=== PATIENT | male | born 1965 | race Caucasian/White ===

== ENCOUNTER 2021-11-28 13:57 | Outpatient (CLI) | payer OTHER, SELFPAY ==
--- NOTE | 2021-11-28 14:04 | RAD_ITS ---
STUDY: X-RAY - LUMBOSACRAL SPINE REASON FOR EXAM: Male, 56 years old. BACK PAIN TECHNIQUE: 6 view(s) of the lumbosacral spine were obtained including flexion and extension and oblique views.. COMPARISON: None FINDINGS: Normal lumbar lordosis. There is no substantial scoliosis. Grade 2 anterolisthesis of L5 on S1 with spondylolysis of the pars interarticularis of the L5 vertebrae. This is worse on the extension views. Anterior spondylosis at the T12-L1 as well as at the L4-L5 and L5-S1 levels. Disc space narrowing at the L5-S1 level. Normal bilateral sacral ala, sacroiliac joints, and visualized sacrum. Normal visualized soft tissue structures. RAD/L/S Spine w Bend Min 6 Vw IMPRESSION: Degenerative changes of the spine, as detailed above. Grade 2 anterolisthesis of L5 on S1 with spondylolysis of the pars interarticularis of the L5 vertebrae. This is more pronounced on the extension views. Electronically Signed: Orlando Sandoval MD at 8:48 EST ,
[2021-11-28 18:53] LABS: Microalbumin,Random Urine 8.9 mg/L (NO RANGE EST.)
[2021-11-28 19:00] LABS: AST(SGOT) 73 U/L (15-37); Alanine Aminotransfer ALT/SGPT 128 U/L (16-61); Albumin, Serum 4.1 g/dL (3.2-5.0); Alkaline Phosphatase 70 U/L (45-117); Anion Gap 11 (5-15); BUN 11 mg/dL (7-18); BUN/Creat Ratio 12.5 RATIO (10-20); Bilirubin, Direct 0.14 mg/dL (0.00-0.30); Calcium,Total 9.2 mg/dL (8.5-10.1); Chloride 104 mmol/L (98-107); Creatinine, Serum 0.88 mg/dL (0.70-1.30); EST Glomerular Filtration Rate 96 mL/min (>60); Est Glom Filt Rate - Afr Amer 116 mL/min (>60); Globulin 3.8 g/dL (2.2-4.2); Glucose 82 mg/dL (74-106); PSA,Total - Annual Screen 0.44 ng/mL (0.00-4.00); Potassium 4.2 mmol/L (3.5-5.1); Protein, Total 7.9 g/dL (6.4-8.2); Sodium Level 137 mmol/L (136-145)
== END 2021-11-28 23:59 | disposition home or self-care (01) ==
LOC: MTLAB 14:00
PROVIDERS: PCP Family Medicine; Referring Provider Family Medicine; Visit Provider Family Medicine
DX: I10 Essential (primary) hypertension (principal); Z12.5 Encounter for screening for malignant neoplasm of prostate; R73.01 Impaired fasting glucose; M54.9 Dorsalgia, unspecified
CPT/HCPCS: 36415; 72114; 80048; 80076; 82043; 84153; G0103

== ENCOUNTER 2021-12-12 09:00 | Outpatient (RCR) | payer OTHER, SELFPAY ==
--- NOTE | 2021-12-02 16:27 | HP.PTEVAL_ITS ---
Patient's Visit Information MEGAN MOSS is a 56 year old M referred to Physical Therapy by Dr. Georges Lindsay MD with a diagnosis of BACK PAIN. Date of Evaluation: 12/02/21 Physical Therapist: Oz Morgan PT, Cert MDT, OCS - Visit Plan Frequency: 2x /Week Duration: 4 Weeks Plan: PT INTERVENTIONS DLS ABD/BACK ,POSTURAL ,LE FLEXABILITY AND POSTURE/BODY MECHANICS - Subjective This 56 y/o male presents to physical therapy with back pain. Patient has lumbar pain for ~ 1 year . Symptoms have been intermittent. Pain located in middle of lumbar spine. Patient seen DR did x-rays DDD and spondylolisthesis . Aggravating factors climbing truck , bending ,lifting and affects job demands. Alleviating walking and resting. Coughing/sneezing-. Bowel/bladder-. Denies paresthesia/tingling. Patient able to sleep okay at night. No trauma other than job demands. Patient condition affects job demands and housework tasks. SOCIAL: . [employer]: [employer] - Pain Bilateral Back Pain Intensity (Out of 10): 3 Pain Intensity Range: 10 Comment: worse - Objective POSTURE: mild forward posture. GAIT: reciprocal pattern. NEURO: denies paresthesia/tingling reflexes 2/3 L3-4,L4-5,L5-S1. SYMMTRIES: align. MMT: hamstrings/hip/quads 4/5 ,ankle 5/5. LUMBAR ROM: flexion min loss ,extension mod loss ,side glides min loss. - Special Tests L/S Slump test left side: Negative L/S Slump test right side: Negative L/S Left Straight Leg Raise: Negative L/S Right Straight Leg Raise: Negative Lumbar Standing: Flexion - Symptoms During Testing: No effect Lumbar Standing: Flexion - Symptoms After Testing: No effect Lumbar Standing: Extension - Mechanical Response: No effect Lumbar Standing: Extension - Symptoms During Testing: No effect Lumbar Standing: Extension - Symptoms After Testing: No effect Lumbar Standing: Right Side Glides - Mechanical Response: No effect Lumbar Standing: Right Side [place] - Symptoms During Testing: No effect Lumbar Standing: Left Side [place] - Mechanical Response: No effect Lumbar Standing: Left Side [place] - Symptoms During Testing: No effect Lumbar Standing: Left Side [place] - Symptoms After Testing: No effect Lumbar Lying: Flexion - Mechanical Response: No effect Lumbar Lying: Flexion - Symptoms During Testing: No effect Lumbar Lying: Flexion - Symptoms After Testing: No effect Lumbar Lying: Extension - Mechanical Response: No effect Lumbar Lying: Extension - Symptoms During Testing: No effect Lumbar Lying: Extension - Symptoms After Testing: No effect - Balance/Special Test Scores Oswestry Low Back Score: 14 - Goals Goal 1:: This patient to be I with HEP Goal Time Frame: 4-6 Weeks Goal 2:: Patient to improve posture/body mechanics for job demands Goal Time Frame: 4-6 Weeks Goal 3:: Patient to demonstrate 70% improvement with decrease pain and function with job demands Goal Time Frame: 4-6 Weeks Goal 4:: Patient to improve lumbar ROM for 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 Goal Time Frame: 4-6 Weeks Goal 5:: Patient improve back oswestry score by 5 points to improve QOL and job demands Goal Time Frame: 4-6 Weeks - Rehabilitation Potential Physical Therapy Diagnosis: This patient has lumbar pain with symmetrical with x-rays showed anteriorlothesis pain with paotion ,lifting carrying affects job demands thus benefit from skilled PT Rehabilitation Potential: Good - Anticipated Interventions Patient/Client Instruction: Educate patient on: Condition, Plan of Care For the Purpose of:: To decrease pain, To increase ROM, To improve muscle performance and motor function, To improve ability to perform ADL's, To increase tolerance to activity/condition/position, To improve performance and independence with ADL's, To improve ability of physical actions for home/community/work/leisure, To improve health of tissue, To decrease soft tissue restriction, To increase flexibility/ROM, To prevent re-injury Therapeutic Exercise to Include: Strength training, Body mechanics, Postural training, Flexibilty training, Active ROM, Dynamic Lumbar Stabilization For the Purpose of:: To decrease pain, To increase ROM, To improve muscle performance and motor function, To improve ability to perform ADL's, To increase tolerance to activity/condition/position, To improve ability of physical actions for home/community/work/leisure, To improve health of tissue, To decrease soft tissue restriction TENS: Yes IF ES: Yes Cryotherapy (ice pack, ice massage): Yes Thermo therapy (hot pack): Yes Ultrasound (thermal/non thermal): Yes For the Purpose of:: To decrease pain, To increase ROM, To improve muscle performance and motor function, To improve ability to perform ADL's, To increase tolerance to activity/condition/position, To improve ability of physical actions for home/community/work/leisure, To improve health of tissue, To decrease soft tissue restriction Thank you for the opportunity to evaluate your patient. For Medicare and Medicare HMO plans, please review the plan of care and approve it. It will need to be FAXED BACK to us at [phone] for Medicare purposes. For Medicare only, by signing this I certify the plan of care. Please let me know if there are questions or concerns regarding this plan of care. Physician Signature: Date:
--- NOTE | 2022-05-09 11:14 | HP.PT.NRP ---
MEGAN MOSS was seen in my office for initial evaluation on 12/02/21. The following Plan of Care was established for this patient: Initial Frequency: 2x /Week Initial Duration: 4 Weeks Patient/Client Instruction: Educate patient on: Condition, Plan of Care For the Purpose of:: To decrease pain, To increase ROM, To improve muscle performance and motor function, To improve ability to perform ADL's, To increase tolerance to activity/condition/position, To improve performance and independence with ADL's, To improve ability of physical actions for home/community/work/leisure, To improve health of tissue, To decrease soft tissue restriction, To increase flexibility/ROM, To prevent re-injury Therapeutic Exercise to Include: Strength training, Body mechanics, Postural training, Flexibilty training, Active ROM, Dynamic Lumbar Stabilization For the Purpose of:: To decrease pain, To increase ROM, To improve muscle performance and motor function, To improve ability to perform ADL's, To increase tolerance to activity/condition/position, To improve ability of physical actions for home/community/work/leisure, To improve health of tissue, To decrease soft tissue restriction TENS: Yes IF ES: Yes Cryotherapy (ice pack, ice massage): Yes Thermo therapy (hot pack): Yes Ultrasound (thermal/non thermal): Yes For the Purpose of:: To decrease pain, To increase ROM, To improve muscle performance and motor function, To improve ability to perform ADL's, To increase tolerance to activity/condition/position, To improve ability of physical actions for home/community/work/leisure, To improve health of tissue, To decrease soft tissue restriction This patient was last seen in our office . Pertinent comments regarding their Physical therapy will appear below: Patient seen for PT for LBP for HEP ,DLS AND POSTURAL EX'S. DOING WELL THUS D/C At this point I will be discontinuing this patient from physical therapy. I would be happy to see this patient again in the future if found appropriate by the physician. Thank you! Oz Morgan, PT, Cert MDT, OCS Balance/Gait/Functional tests - Balance/Special Test Scores Oswestry Low Back Score: 2
== END 2021-12-12 19:00 | disposition home or self-care (01) ==
LOC: PT 09:00
PROVIDERS: PCP Family Medicine; Referring Provider Family Medicine; Visit Provider Family Medicine
DX: M54.9 Dorsalgia, unspecified (principal)
CPT/HCPCS: 97110; 97162

== ENCOUNTER → 2022-07-10 | Outpatient (CLI) | payer OTHER, SELFPAY ==
[2022-07-10 15:55] LABS: ALB/GLOB Ratio 0.9 RATIO (0.9-2.4); AST(SGOT) 45 U/L (15-37); Alanine Aminotransfer ALT/SGPT 80 U/L (16-61); Albumin, Serum 3.9 g/dL (3.2-5.0); Alkaline Phosphatase 64 U/L (45-117); Anion Gap 7 (5-15); BUN 15 mg/dL (7-18); BUN/Creat Ratio 13.4 RATIO (10-20); Calcium,Total 9.8 mg/dL (8.5-10.1); Chloride 101 mmol/L (98-107); Cholesterol 202 mg/dL (200); Creatinine, Serum 1.12 mg/dL (0.70-1.30); EST Glomerular Filtration Rate 72 mL/min (>60); Est Glom Filt Rate - Afr Amer 88 mL/min (>60); Globulin 4.3 g/dL (2.2-4.2); Glucose 99 mg/dL (74-106); High Density Lipoprotein 37 mg/dL; Potassium 4.4 mmol/L (3.5-5.1); Protein, Total 8.2 g/dL (6.4-8.2); Sodium Level 137 mmol/L (136-145); Triglycerides 257 mg/dL; Very Low Density Lipoprotein 51 mg/dL (5-40)
== END | disposition home or self-care (01) ==
LOC: MFPLAB 12:05
PROVIDERS: PCP Family Medicine; Referring Provider Family Medicine; Visit Provider Family Medicine
DX: Z00.00 Encounter for general adult medical examination without abnormal findings (principal); R79.89 Other specified abnormal findings of blood chemistry
CPT/HCPCS: 36415; 80053; 80061

== ENCOUNTER 2023-06-27 14:30 | Emergency (ER) | payer OTHER, SELFPAY ==
[2023-06-27 14:32] VITALS: BP 147/98; PULSE 95; RESP 16; TEMP 36.9; O2SAT 94; BMI 47.8
--- NOTE | 2023-06-27 15:20 | CT_ITS ---
STUDY: CT ABDOMEN AND PELVIS WITH CONTRAST REASON FOR EXAM: Male, 58 years old. LLQ abdominal pain RADIATION DOSAGE (If Supplied By Facility): CTDIvol = ( 24.55 ) mGy, DLP = ( 1377.47 ) mGycm TECHNIQUE: Transaxial images were obtained from the dome of the diaphragm to the symphysis pubis without oral contrast. IV 100mL Isovue-370 was administered. Sagittal and coronal images were reconstructed. Individualized dose optimization techniques were used for this CT. COMPARISON: None. FINDINGS: The visualized lung bases are unremarkable. The visualized portions of the heart are within normal limits. Normal liver. Normal gallbladder and extrahepatic biliary system. Normal spleen. Normal pancreas. Normal bilateral adrenal glands. Bilateral nonobstructing renal stones. 5 mm obstructing stone in the mid left ureter. 10 mm obstructing stone at the left ureteropelvic junction with mild hydronephrosis and perinephric edema. Normal visualized stomach. Normal small intestine. Normal colon. The appendix is visualized and appears normal. Normal abdominal aorta. Normal inferior vena cava. Normal retroperitoneum. Normal urinary bladder. Normal abdominal wall. Bilateral pars defects the L5 vertebra consistent with L5 spondylolysis. 2 mm of anterolisthesis of L5 on S1 consistent with grade [address]/Abdomen/Pelvis W IV Cont ONLY IMPRESSION: 10 mm obstructing stone at the left ureteropelvic junction with mild hydronephrosis and perinephric edema. Another 5 mm obstructing stone of the mid left ureter. Electronically Signed: Florentino Love MD at 17:29 EDT ,
--- NOTE | 2023-06-27 15:28 | EDS_ITS ---
HPI <ASHLYN Belle - Last Filed: 06/27/23 19:21> History of Present Illness Chief Complaint: Abd Pain Narrative Narrative: Patient is a 58-year-old male with history of obesity, hypertension who takes lisinopril presents to the emergency department with 2.5 days of left lower quadrant abdominal pain. Patient denies any radiation from his back to his front. He states is right there. Started at roughly 1 PM, he he describes it as gnawing however states it does have periods of sharpness. Today, patient had pain and then had 2 episodes of vomitus. He denies history of kidney stones, denies history of any diverticulitis. Patient denies any blood in stool or vomit. Denies any fever or chills. PFSH <ASHLYN Belel - Last Filed: 06/27/23 19:21> PFSH Home Medications lisinopril 20 mg tablet 20 mg PO DAILY 06/27/23 [History Last Taken Unknown] ondansetron 4 mg disintegrating tablet 4 mg PO Q8H PRN PRN Nausea #10 tabs 06/27/23 [Rx Last Taken Unknown] oxycodone-acetaminophen 5 mg-325 mg tablet (Percocet) 1 tab PO Q8H PRN pain 3 days #12 tabs 06/27/23 [Rx Last Taken Unknown] Allergy/AdvReac Type Severity Reaction Status Date / Time No Known Allergies Allergy Verified 06/27/23 14:32 Social History (Updated 11/16/19 @ 17:45 by Jason HERNÁNDEZ, EDGAR) Smoking Status: Never smoker alcohol intake: never ROS <ASHLYN Belle - Last Filed: 06/27/23 19:21> ROS ED ROS Narrative Constitutional: Negative for fever, chills, weight loss, weakness Eyes: Negative for vision loss, vision change, double vision ENT: Negative for any sore throat, ear pain, congestion Cardiovascular: Negative for any chest pain, tightness, palpitations Respiratory: Negative for any cough, sputum production, hemoptysis, dyspnea, dyspnea on exertion, orthopnea Gastrointestinal: Negative for any diarrhea, constipation, blood in stool, blood in vomit. Positive for abdominal pain, nausea and vomiting : Negative for any urinary frequency, dysuria, retention, blood in urine Muscle skeletal: Negative for any muscle joint pain, stiffness, myalgias, arthralgias, neck pain, back pain Neurological: Negative for any headache, syncope, numbness or tingling, dizziness Skin: Negative for any rashes, lumps, itching, abrasions, lacerations Psychiatric: Negative for any depression, anxiety, stress, suicidal ideation, homicidal ideation Hematologic: Negative for any easy bruising, excessive bruising, easy bleeding Allergies: Negative for any eczema, hives, rash EXAM <ASHLYN Belle - Last Filed: 06/27/23 19:21> Physical Exam Narrative Exam Narrative: Vital signs reviewed. HEET: Head normocephalic atraumatic, TMs clear bilaterally. Posterior pharynx is clear, moist mucous membranes. Nares clear bilaterally. Neck: Supple with no lymphadenopathy or tenderness. No signs of meningismus, negative jolt sign. Cardiac: Regular rate and rhythm no murmurs gallops or rubs, equal peripheral pulses bilaterally. Respiratory: Lungs clear to auscultation bilaterally. No chest tenderness. Abdomen: Soft, nondistended. No abdominal bruit or pulsatile masses. No hepatosplenomegaly. Pain to the left lower quadrant Extremities: No peripheral edema, no signs of gross trauma or deformity. Active full range of motion of all extremities. Neuro: Cranial nerves II through XII intact, no focal neurological deficits. Skin: Clean dry and intact with no rash, purpura, petechiae, vesicles or pustules. Backs/flank: No CVA tenderness, no midline spinal tenderness, no deformity. Psych: Normal mood and affect. No SI, HI or acute psychosis. Const Vital Signs: 06/27/23 14:32 06/27/23 18:47 Temperature 98.5 F Temperature Source Temporal Pulse Rate 95 70 Respiratory Rate 16 18 Blood Pressure 147/98 H 166/103 H Blood Pressure Mean 114 124 Pulse Ox 94 97 Oxygen Delivery Method Room Air Room Air <Dr. Jose Tripp MD - Last Filed: 06/27/23 15:46> Physical Exam Const Vital Signs: 06/27/23 14:32 06/27/23 18:47 Temperature 98.5 F Temperature Source Temporal Pulse Rate 95 70 Respiratory Rate 16 18 Blood Pressure 147/98 H 166/103 H Blood Pressure Mean 114 124 Pulse Ox 94 97 Oxygen Delivery Method Room Air Room Air MDM <ASHLYN Belle - Last Filed: 06/27/23 19:21> MDM Lab Data Labs: Laboratory Results - last 24 hr 06/27/23 06/27/23 15:45 17:30 WBC 13.5 H RBC 5.49 Hgb 16.5 Hct 47.1 MCV 85.8 MCH 30.1 MCHC 35.0 RDW Std Deviation 42.9 RDW Coeff of [place]ist[place] 13.7 Plt Count 227 MPV 10.7 Immature Gran % (Auto) 0.400 Neut % (Auto) 75.7 H Lymph % (Auto) 10.2 L Ross % (Auto) 11.9 H Eos % (Auto) 1.6 Baso % (Auto) 0.2 Absolute Neuts (auto) 10.2 H Absolute Lymphs (auto) 1.37 Nucleated RBC % 0 Differential Comment SEE COMMENT Diff Path Review May foll Platelet Estimate ADEQUATE RBC Morphology NORM C+C Anisocytosis RARE Sodium 134 L Potassium 3.8 Chloride 102 Carbon Dioxide 25.0 Anion Gap 7 BUN 15 Creatinine 1.51 H Estim Creat Clear Calc 52.85 Est GFR (MDRD) Af Amer 62 Est GFR (MDRD) Non-Af 51 L BUN/Creatinine Ratio 9.9 L Glucose 119 H Calcium 9.5 Urine Color Yellow Urine Clarity Clear Urine pH 6.0 Ur Specific [place] 1.010 Urine Protein Negative Urine Glucose (UA) Normal Urine Ketones 5 H Urine Occult Blood 150 H Urine Nitrite Negative Urine Bilirubin Negative Urine Urobilinogen Normal Ur Leukocyte Esterase Negative Urine RBC 0-5 SEEN Urine WBC 0-5 SEEN Ur Squamous Epith Cells 0 SEEN Urine Bacteria 0 SEEN Urine Mucus 0 SEEN Radiography Diagnostic Testing: Clinical Impression(s) from Imaging Studies Abdomen/Pelvis CT 06/27/23 15:20 IMPRESSION: 10 mm obstructing stone at the left ureteropelvic junction with mild hydronephrosis and perinephric edema. Another 5 mm obstructing stone of the mid left ureter. Electronically Signed: Florentino Love MD at 17:29 EDT , Treatment and Re-Evaluation :: Patient is in no obvious distress, patient's vital signs are stable. Patient presents to the emergency department with complaints of 1.5 days of left lower quadrant abdominal pain. Physical examination, HPI is concerning for diverticulitis versus kidney stone. Patient will receive basic laboratory values, CT scan of the abdomen pelvis with IV contrast, patient was offered pain medicine, nausea medicine however he refused stating that the pain is manageable right now. On reevaluation, the patient would like some pain medicine. Patient's laboratory values showed a leukocytosis white blood count 13.5. Patient's chemistries show a sodium of 134, some renal sufficiency with a creatinine of 1.5. Patient's baseline is 0.8-1.12. Patient CT scan of the abdomen pelvis IV contrast shows a 10 mm obstructing stone in the left ureteral pelvic junction with mild hydronephrosis and perinephric edema. Another 5 mm obstructing stone in the mid left ureter. Secondary this finding, patient will be consulted with urology. We spoke with Dr. Olivarez, he would like to take care of this outpatient. I spoke with the patient, he is okay going home. He will be placed on oxycodone, replaced on Zofran. He will follow-up at 8 AM Thursday morning at urology office. He was given strict return precautions to return for any intractable pain, nausea, vomiting fever chills difficulty urinating. All questions answered, patient stable for discharge. <Dr. Jose Tripp MD - Last Filed: 06/27/23 15:46> [facility] Narrative Medical decision making narrative: I have personally performed a face to face assessment of the patient and have reviewed the CHELA Note. I performed a substantive portion of the visit including all aspects of the following. My calzada findings include: History is-year-old male with no prior abdominal surgery. Complaining of left lower quad abdominal pain began yesterday. No trauma. No fever. No dysuria or hematuria. No prior history of kidney stones or diverticulitis. [place] any abdominal trauma. Exam is [8-year-old male no acute distress. Vital signs stable afebrile. Lungs clear. Heart regular rhythm. Abdomen soft, nondistended normal bowel sounds no peritoneal signs. Minimal tenderness on the left lower quadrant. The other 3 quadrants of the abdomen are nontender. Nondistended. No hernia or mass. No pulsatile mass. No right upper or right lower quadrant tenderness. No back pain. Neurologically is awake alert moving all 4 extremities] Medical Decision Making [58-year-old left lower quadrant abdominal pain differential include kidney stone, UTI or diverticulitis. Versus other etiologies. There is no signs of trauma. CAT scan labs are pending. He did not want or need anything for pain or nausea at this time.] Other additions or changes: [None] Lab Data Labs: Laboratory Results - last 24 hr 06/27/23 06/27/23 15:45 17:30 WBC 13.5 H RBC 5.49 Hgb 16.5 Hct 47.1 MCV 85.8 MCH 30.1 MCHC 35.0 RDW Std Deviation 42.9 RDW Coeff of [place]ist[place] 13.7 Plt Count 227 MPV 10.7 Immature Gran % (Auto) 0.400 Neut % (Auto) 75.7 H Lymph % (Auto) 10.2 L Ross % (Auto) 11.9 H Eos % (Auto) 1.6 Baso % (Auto) 0.2 Absolute Neuts (auto) 10.2 H Absolute Lymphs (auto) 1.37 Nucleated RBC % 0 Differential Comment SEE COMMENT Diff Path Review May foll Platelet Estimate ADEQUATE RBC Morphology NORM C+C Anisocytosis RARE Sodium 134 L Potassium 3.8 Chloride 102 Carbon Dioxide 25.0 Anion Gap 7 BUN 15 Creatinine 1.51 H Estim Creat Clear Calc 52.85 Est GFR (MDRD) Af Amer 62 Est GFR (MDRD) Non-Af 51 L BUN/Creatinine Ratio 9.9 L Glucose 119 H Calcium 9.5 Urine Color Yellow Urine Clarity Clear Urine pH 6.0 Ur Specific [place] 1.010 Urine Protein Negative Urine Glucose (UA) Normal Urine Ketones 5 H Urine Occult Blood 150 H Urine Nitrite Negative Urine Bilirubin Negative Urine Urobilinogen Normal Ur Leukocyte Esterase Negative Urine RBC 0-5 SEEN Urine WBC 0-5 SEEN Ur Squamous Epith Cells 0 SEEN Urine Bacteria 0 SEEN Urine Mucus 0 SEEN Radiography Diagnostic Testing: Clinical Impression(s) from Imaging Studies Abdomen/Pelvis CT 06/27/23 15:20 IMPRESSION: 10 mm obstructing stone at the left ureteropelvic junction with mild hydronephrosis and perinephric edema. Another 5 mm obstructing stone of the mid left ureter. Electronically Signed: Florentino Love MD at 17:29 EDT , Discharge Plan Triage Chief Complaint: Abd Pain ED Midlevel Provider: Mundo Cadet ED Provider: Jose Tripp Dx/Rx/DC Orders Clinical Impression: Kidney calculus, Nausea & vomiting, Abdominal pain Instructions: Kidney Stones Surg, ED Kidney Stone w/ Colic Prescriptions: New oxycodone-acetaminophen [Percocet] 5-325 mg tablet 1 tab PO Q8H PRN (Reason: pain) 3 Days Qty: 12 0RF ondansetron 4 mg tablet,disintegrating 4 mg PO Q8H PRN PRN (Reason: Nausea) Qty: 10 0RF No Action lisinopril 20 mg tablet 20 mg PO DAILY Primary Care Provider: Georges Lindsay Referrals: Georges Lindsay MD [Primary Care Provider] - Armando Olivarez MD [Med Staff - Active Staff] - Activity Restrictions/Additional Instructions: You need to follow-up with urology office, call 8 AM Thursday morning. Return for worsening pain, fever chills, nausea or vomiting. Disposition Disposition: Home, Self Care
[2023-06-27] MEDS: 0.9% Normal Saline (1000mL) 1,000 ML 1000 ML IV (15:39)
[2023-06-27 15:48] LABS: Absolute Lymphocyte Count 1.37 X10^3/uL (0.83-4.51); Absolute Neutrophil Count 10.2 X10^3/uL (2.0-7.7); Basophil# 0.03 X10^3/uL; Basophil% 0.2 % (0-1); Eosinophil# 0.22 X10^3/uL; Eosinophils% 1.6 % (0-5); Hematocrit 47.1 % (40-54); Hemoglobin 16.5 g/dL (13.0-16.5); Lymphocyte # 1.37 X10^3/ul (0.83-4.51); Lymphocyte % 10.2 % (19-41); Mean Corpuscular Hgb 30.1 pg (27.0-32.0); Mean Corpuscular Volume 85.8 fL (80-94); Mean Platelet Vol. 10.7 fl (6.2-12.0); Monocyte% 11.9 % (0-10); NRBC Flagged by Analyzer 0 % (0-5); Neutrophil # 10.18 X10^3/uL (2.7-7.7); Neutrophil % 75.7 % (47-70); POSITIVE DIFFERENTIAL YES; Platelet Count 227 K/mm3 (150-450); RBC Distribution Width CV 13.7 % (11.6-14.6); RBC Distribution Width SD 42.9 fl (35.1-43.9); Red Blood Count 5.49 M/mm3 (4.6-6.2); White Blood Count 13.5 K/mm3 (4.4-11.0)
[2023-06-27 16:00] LABS: Anion Gap 7 (5-15); BUN 15 mg/dL (7-18); BUN/Creat Ratio 9.9 RATIO (10-20); Calcium,Total 9.5 mg/dL (8.5-10.1); Chloride 102 mmol/L (98-107); Creatinine, Serum 1.51 mg/dL (0.70-1.30); EST Glomerular Filtration Rate 51 mL/min (>60); Est Glom Filt Rate - Afr Amer 62 mL/min (>60); Estimated Creatinine Clearance 52.85 ml/min; Glucose 119 mg/dL (74-106); Potassium 3.8 mmol/L (3.5-5.1); Sodium Level 134 mmol/L (136-145)
[2023-06-27 16:20] LABS: Differential Indicated SCAN CRITERIA MET
[2023-06-27 16:22] LABS: Anisocytosis RARE; Platelet Estimate ADEQUATE (ADEQ); Red Cell Morphology NORM C+C NORMAL (NORM C&C)
[2023-06-27 17:38] LABS: Bacteria 0 SEEN /hpf (None Seen); Mucous, Urine 0 SEEN /hpf (<or=2+); Squamous Epithelial Cells - UA 0 SEEN /hpf (0-5)
[2023-06-27] MEDS: Ondansetron 4 MG/2 ML Vial IV (17:42)
[2023-06-27] MEDS: HYDROmorphone 1 MG/ML Syringe IV (17:42)
[2023-06-27 17:48] LABS: Color, Urine Yellow (Yellow); Glucose, Dipstick Normal (Normal); Ketone-Dipstick 5 mg/dl (Negative); Leukocyte Esterase-Dipstick Negative /ul (Negative); Nitrite-Dipstick Negative (Negative); Occult Blood-Urine 150 /ul (Negative); Protein-Dipstick Negative (Negative); Urine Bilirubin Dipstick Negative (Negative); Urine Clarity Clear (Clear); Urine Urobilinogen Normal (Normal)
[2023-06-27 17:57] LABS: Red Blood Cells-Urine 0-5 SEEN /hpf (0-5); White Blood Cells 0-5 SEEN /hpf (0-5)
[2023-06-27 18:47] VITALS: BP 166/103; PULSE 70; RESP 18; O2SAT 97
[2023-06-27] MEDS: HYDROmorphone 0.5 MG/0.5 ML SYRINGE IV (19:33)
[2023-06-30 08:52] LABS: Pathologist Review Reviewed
== END 2023-06-27 20:27 | disposition home or self-care (01) ==
PROVIDERS: Nurse Practitioner; Emergency Provider Emergency Medicine; PCP Family Medicine; Visit Provider Emergency Medicine
DX: N13.2 Hydronephrosis with renal and ureteral calculous obstruction (principal); E66.9 Obesity, unspecified; I10 Essential (primary) hypertension; Z79.899 Other long term (current) drug therapy
CPT/HCPCS: 74177; 80048; 81001; 85025; 96361; 96374; 96375; 96376; 99282; J7030; Q9967; A4216; J2405

== ENCOUNTER 2023-07-03 11:24 | Day surgery (SDC) | payer OTHER, SELFPAY ==
[2023-07-03] VITALS (8 sets, daily range): BP systolic 108–120; BP diastolic 51–75; PULSE 70–82; RESP 16; TEMP 35.9–37.2; O2SAT 95–99; BMI 46.2
--- NOTE | 2023-07-03 13:23 | HP.PCM_ITS ---
History and Physical Date of Admission: 07/03/23 58 yo male with a 10mm stone in the left UPJ also a 5mm stone in the lower pole Right kidney. doing well, no more nausea and vomiting some pain still on narcotics ALLERGIES: None MEDICATIONS: Lisinopril Oxycodone-Acetaminophen Tylenol PAST SURGICAL HISTORY: None PAST MEDICAL HISTORY: Disorder of thyroid, unspecified Immunizations: None FAMILY HISTORY: None SOCIAL HISTORY: Marital Status: Preferred Language: Marshallese; Race: White Current Smoking Status: Patient has never smoked. Tobacco Use Assessment Completed: Used Tobacco in last 30 days? Smoking cessation counseling was provided. Does not use smokeless tobacco. Light Drinker. Does not use drugs. Drinks 4+ caffeinated drinks per day. Has not had a blood transfusion. REVIEW OF SYSTEMS: Constitutional: Patient reports chills. Patient denies fever, weight loss, and weight gain. Eyes: Patient denies blurry vision, cataracts, and glaucoma. Ears, Nose, Mouth, Throat: Patient denies hearing loss, sinus infections, and sleep apnea. Cardiovascular: Patient denies chest pains, swollen ankles, irregular heartbeat, and pacemaker/defib. Respiratory: Patient denies shortness of breath, wheezing, oxygen, and cpap machine. Gastrointestinal: Patient denies abdominal pain, diarrhea, constipation, nausea, and vomiting. Genitourinary: Patient denies frequent urination, urinary retention, get up at night to void, urinary incontinence, painful urination, blood in the urine, frequent uti's, history of stones, difficulty starting stream, weak stream/scanty, and bedwetting. Musculoskeletal: Patient denies sore muscles, back pain, and gout. Integumentary/Skin: Patient denies rash, chronic itching, and skin cancer. Neurological: Patient denies falling/unsteady, paralysis, and stroke/tia. Hematologic/Lymphatic: Patient denies abnormal bleeding, blood transfusion, swollen lymph nodes, deep venous thrombosis, and pulmonary embolism. VITAL SIGNS: 06/29/2023 09:45 AM Weight 310 lb / 140.61 kg Height 68 in / 172.72 cm BP 136/84 mmHg BMI 47.1 kg/m? - BMI Counseling was provided. PHYSICAL EXAM: Constitutional: Well-nourished. No physical deformities. Normally developed. Good grooming. Neck: Neck symmetrical, not swollen. Normal tracheal position. Respiratory: No labored breathing, no use of accessory muscles. Cardiovascular: Normal temperature, normal extremity pulses, no swelling, no varicosities. Lymphatic: No enlargement of neck, axillae, groin. Skin: No paleness, no jaundice, no cyanosis. No lesion, no ulcer, no rash. Neurologic / Psychiatric: Oriented to time, oriented to place, oriented to person. No depression, no anxiety, no agitation. Gastrointestinal: No mass, no tenderness, no rigidity, non obese abdomen. Eyes: Normal conjunctivae. Normal eyelids. Ears, Nose, Mouth, and Throat: Left ear no scars, no lesions, no masses. Right ear no scars, no lesions, no masses. Nose no scars, no lesions, no masses. Normal hearing. Normal lips. Musculoskeletal: Normal gait and station of head and neck. Complexity of Data: Source Of History: Patient Records Review: Previous Doctor Records, Previous Patient Records Urine Test Review: Urinalysis PROCEDURES: None ASSESSMENT: ICD-10 Details 1 Calculus of kidney - N20.0 Left, Acute, Systemic Symptoms PLAN: Document Letter(s): Created for Patient: Clinical Summary Notes: plan for Left ESWL and stent add on this coming Thursday at [facility]. discussed 905 success rate and may need 2nd treatment.
[2023-07-03] MEDS: Cefazolin 2 GM in 0.9% Normal Saline (100mL Bag) 100 ML IV (13:50)
[2023-07-03] MEDS: Ketorolac 15 MG/ML Vial IV (14:05)
--- NOTE | 2023-07-03 14:06 | DCINST_ITS ---
Discharge Instructions Diet Discharge Diet: No restrictions Activity Discharge Activity: Return to Normal Activity and May Not Drive (while taking narcotic pain medications.) Dressing / Incision Call your doctor if you observe: Fever of 101 or Higher Follow Up Care Please Follow Up With: Armando Olivarez MD When: Call [phone] for an appointment Test Results: Test results from this visit will be discussed in further detail at your follow- up appointment, if applicable. Discharge Plan Admission Primary Reason for Your Visit: Cystoscopy left stent placement left ESWL Attending Provider: Armando Olivarez Primary Care Provider: Georges Lindsay Discharge Orders/Prescriptions Prescriptions: New tamsulosin [Flomax] 0.4 mg capsule 0.4 mg PO DAILY Qty: 10 0RF ciprofloxacin HCl 500 mg tablet 500 mg PO BID Qty: 10 0RF phenazopyridine [Pyridium] 100 mg tablet 100 mg PO TID PRN (Reason: pain) Qty: 20 0RF oxycodone 5 mg tablet 5 mg PO Q6H PRN (Reason: pain) 7 Days Qty: 14 0RF Continued lisinopril 20 mg tablet 20 mg PO DAILY oxycodone-acetaminophen [Percocet] 5-325 mg tablet 1 tab PO Q8H PRN (Reason: pain) 3 Days Qty: 12 0RF ondansetron 4 mg tablet,disintegrating 4 mg PO Q8H PRN PRN (Reason: Nausea) Qty: 10 0RF Referrals / Follow Up: Georges Lindsay MD [Primary Care Provider] - Armando Olivarez MD [Med Staff - Active Staff] - Disposition Disposition (needs filled in before D/C Order can be placed): Home, Self Care
--- NOTE | 2023-07-03 14:06 | PCM.OPRPT ---
Report of Operation Date of Procedure: 07/03/23 Pre-Operative Diagnosis: Left renal calculi Post-Operative Diagnosis: Same Surgery/Procedure Performed:: Cystoscopy left stent placement left extracorporeal shockwave lithotripsy Description of Surgical Findings:: Patient presents to the hospital for treatment of a kidney stone with shockwave lithotripsy. In the preoperative area and x-ray was done to confirm the location of the stone. The x-ray was reviewed and the stone location was reviewed. In the preoperative setting I spoke with the patient regarding the treatment of the stone how the treatment would be conducted and the expectations after surgery. The patient understands there is a risk of bleeding and infection. Also discussed the very rare risk of hematoma or damage to the kidney. We also discussed the risk that the shockwave machine will fail to break the stone adequately and that the patient may need other surgical procedures. We also discussed the possibility that the patient may need a stent after the procedure. After reviewing the procedure with the patient, the patient is signed the consent form all the patient's questions were addressed and was taken back to the operating room for treatment of a kidney stone. Patient was taken back to the operating room, patient was identified by the nursing staff, we identified the side of the treatment and the patient side of treatment had been marked by my initials. The patient underwent general anesthetic and was placed supine on the lithotripter table. We then used fluoroscopy to identify the stone on the Left side. The urethra and genitals were prepped and draped in usual sterile fashion. Using a 21 Kittitian rigid cystourethroscope the entire length of the urethra was normal then went into the bladder. Identified the trigone the left and right ureteral orifice. I then cannulated the Left orifice and advanced a wire up into the kidney. I then backloaded a 5 Kittitian open ended catheter over the wire and injected contrast to delineate the anatomy. After the retrograde was performed I then used fluoroscopic images and guidance to advanced a wire up into the kidney and over the 0.038 glidewire I advanced a 6 Kittitian by 26 cm double pigtail stent. I then pulled the 0.038 Glidewire off and the stent coiled in the kidney bladder good position. The bladder was then drained. We confirmed the position of the stent by fluoroscopy. We then positioned the patient under the lithotripter and we used triangulation technique to identify the location of the stone and then we made sure that the stone was engaged in the F2 focal point of F2 Donier lithoprior machine. Once the patient was positioned appropriately and the stone was identified and placed in the F2 focal point of the lithotripter machine we then proceeded with shockwave lithotripsy. In the beginning the shockwave was delivered at a rate of 90 shocks per minute, we monitor the EKG for any ectopy. The power was slowly increased to 5 kV and subsequently at the 7 kV. We then proceeded with the treatment we move the therapy had around during the treatment to make sure the stone stayed in the F2 focal point during the entire treatment and after 3000 shockwaves were delivered to the stone under fluoroscopic guidance the treatment was completed. The patient was given instructions to call the office to make an a follow-up appointment with an xray to evaluate the success of the treatment, pateint understands that its possible the stones may need another procedure.At this point the patient's anesthetic was reversed patient was extubated and taken back to the PACU in stable condition. Surgeon: Armando Olivarez Type of Anesthesia: General Drains: left stent Admit VTE Documentation VTE Present on Admission: No VTE Mechan Device Prophylaxis: SCD's VTE Pharm Prophylaxis ordered?: No
== END 2023-07-03 16:54 | disposition home or self-care (01) ==
LOC: SDC 11:25 → AC 11:27
PROVIDERS: PCP Family Medicine; Referring Provider Urology; Visit Provider Urology
PROC: (CPT 50590; principal; 2023-07-03 13:40)
DX: N20.2 Calculus of kidney with calculus of ureter (principal); I10 Essential (primary) hypertension; Z87.442 Personal history of urinary calculi
CPT/HCPCS: 50590; 52332; 00873; J7120; C1769; C2617; J2405

== ENCOUNTER → 2023-07-09 | Outpatient (CLI) | payer OTHER, SELFPAY ==
--- NOTE | 2023-07-09 14:00 | RAD_ITS ---
EXAM: XR ABDOMEN, 1 VIEW CLINICAL INDICATION: KIDNEY STONES TECHNIQUE: Frontal supine view of the abdomen/pelvis. COMPARISON: No relevant prior studies available. FINDINGS: LOWER THORAX: Lung bases are clear as imaged. GASTROINTESTINAL TRACT: Unremarkable. No bowel obstruction. ORGANS: Multiple small left renal calculi identified. No organomegaly. BONES/JOINTS: No suspicious lytic or sclerotic lesions of bone. SOFT TISSUES: No acute pathology. TUBES, LINES AND DEVICES: Left ureteral stent in place. RAD/Abdomen Single View IMPRESSION: Multiple small left renal calculi identified. These can be further characterized with CT. Electronically Signed: Valdemar Ritchie MD at 4:48 EDT ,
== END | disposition home or self-care (01) ==
LOC: RAD 13:54
PROVIDERS: PCP Family Medicine; Referring Provider Urology; Visit Provider Urology
DX: N20.0 Calculus of kidney (principal)
CPT/HCPCS: 74018

== ENCOUNTER → 2023-07-13 | Outpatient (CLI) | payer OTHER, SELFPAY ==
[2023-07-13 16:01] LABS: ALB/GLOB Ratio 0.8 RATIO (0.9-2.4); AST(SGOT) 25 U/L (15-37); Alanine Aminotransfer ALT/SGPT 40 U/L (16-61); Albumin, Serum 3.6 g/dL (3.2-5.0); Alkaline Phosphatase 60 U/L (45-117); Anion Gap 8 (5-15); BUN 18 mg/dL (7-18); BUN/Creat Ratio 10.3 RATIO (10-20); Calcium,Total 9.1 mg/dL (8.5-10.1); Chloride 104 mmol/L (98-107); Cholesterol 173 mg/dL (200); Creatinine, Serum 1.75 mg/dL (0.70-1.30); EST Glomerular Filtration Rate 43 mL/min (>60); Est Glom Filt Rate - Afr Amer 52 mL/min (>60); Globulin 4.3 g/dL (2.2-4.2); Glucose 96 mg/dL (74-106); High Density Lipoprotein 33 mg/dL; PSA,Total - Annual Screen 0.78 ng/mL (0.00-4.00); Potassium 4.8 mmol/L (3.5-5.1); Protein, Total 7.9 g/dL (6.4-8.2); Sodium Level 136 mmol/L (136-145); Triglycerides 235 mg/dL; Very Low Density Lipoprotein 47 mg/dL (5-40)
[2023-07-16 13:07] LABS: PROEL- A/G Ratio 0.9 (0.7-1.7); PROEL- Albumin 3.4 g/dL (2.9-4.4); PROEL- Alpha-1 Globulin 0.3 g/dL (0.0-0.4); PROEL- Alpha-2 Globulin 1.1 g/dL (0.4-1.0); PROEL- Beta Globulin 1.2 g/dL (0.7-1.3); PROEL- Gamma Globulin 1.3 g/dL (0.4-1.8); PROEL- Globulin, Total 3.9 g/dL (2.2-3.9); PROEL- TOTAL PROTEIN 7.3 g/dL (6.0-8.5)
== END | disposition home or self-care (01) ==
LOC: MFPLAB 11:24
PROVIDERS: PCP Family Medicine; Visit Provider Family Medicine
DX: I10 Essential (primary) hypertension (principal); R79.89 Other specified abnormal findings of blood chemistry; Z12.5 Encounter for screening for malignant neoplasm of prostate
CPT/HCPCS: 36415; 80053; 80061; 84153; 84165; G0103

== ENCOUNTER → 2023-10-13 | Outpatient (CLI) | payer OTHER, SELFPAY ==
--- NOTE | 2023-10-13 08:34 | RAD_ITS ---
EXAM: XR ABDOMEN, 1 VIEW CLINICAL INDICATION: CALCULUS OF KIDNEY TECHNIQUE: Frontal supine view of the abdomen/pelvis. COMPARISON: XR Abdomen dated 07/09/2023 FINDINGS: GASTROINTESTINAL TRACT: Normal bowel gas pattern. ORGANS: Residual 5 mm calcification projecting over the right kidney. Previously noted stones within the lower and inner pole region of the left kidney are no longer seen. Left double-J ureteral stent catheter has been removed. BONES/JOINTS: No acute abnormality. RAD/Abdomen Single View IMPRESSION: Right nephrolithiasis. No definite left renal stone identified Electronically Signed: Axel Rosario MD at 9:30 EST ,
[2023-10-13 10:53] LABS: Absolute Lymphocyte Count 2.04 X10^3/uL (0.83-4.51); Absolute Neutrophil Count 6.8 X10^3/uL (2.0-7.7); Basophil# 0.02 X10^3/uL; Basophil% 0.2 % (0-1); Hematocrit 46.8 % (40-54); Hemoglobin 15.4 g/dL (13.0-16.5); Lymphocyte # 2.04 X10^3/ul (0.83-4.51); Lymphocyte % 20.2 % (19-41); Mean Corp Hgb Conc 32.9 g/dL (32-36); Mean Corpuscular Hgb 28.5 pg (27.0-32.0); Mean Corpuscular Volume 86.5 fL (80-94); Mean Platelet Vol. 11.1 fl (6.2-12.0); Monocyte# 0.84 X10^3/uL; Monocyte% 8.3 % (0-10); NRBC Flagged by Analyzer 0 % (0-5); Neutrophil # 6.78 X10^3/uL (2.7-7.7); Neutrophil % 67.3 % (47-70); Platelet Count 287 K/mm3 (150-450); RBC Distribution Width CV 14.1 % (11.6-14.6); RBC Distribution Width SD 44.3 fl (35.1-43.9); Red Blood Count 5.41 M/mm3 (4.6-6.2); White Blood Count 10.1 K/mm3 (4.4-11.0)
[2023-10-13 10:57] LABS: Erythrocyte Sedimentation Rate 3 mm/hr (0-20)
[2023-10-13 11:55] LABS: AST(SGOT) 32 U/L (15-37); Alanine Aminotransfer ALT/SGPT 54 U/L (16-61); Albumin, Serum 3.9 g/dL (3.2-5.0); Alkaline Phosphatase 60 U/L (45-117); BUN 13 mg/dL (7-18); Bilirubin, Direct 0.14 mg/dL (0.00-0.30); Creatinine, Serum 0.95 mg/dL (0.70-1.30); EST Glomerular Filtration Rate 87 mL/min (>60); Est Glom Filt Rate - Afr Amer 105 mL/min (>60); Globulin 3.8 g/dL (2.2-4.2); Glucose 104 mg/dL (74-106); Protein, Total 7.7 g/dL (6.4-8.2); Rheumatoid Factor < 10.0 IU/mL (<15); Thyroid Stim Hormone (TSH) 5.65 uIU/mL (0.358-3.74)
[2023-10-13 13:56] LABS: Vitamin D,25 Hydroxy 19.1 ng/mL
[2023-10-14 12:09] LABS: ANTINUCLEAR ANTIBODIES DIRECT Negative (Negative)
[2023-10-15 19:07] LABS: Thyroid Peroxidase AB < 9 IU/mL (0-34)
== END | disposition home or self-care (01) ==
PROVIDERS: Specialist; PCP Family Medicine; Referring Provider Urology; Visit Provider Urology
DX: J32.9 Chronic sinusitis, unspecified (principal); T78.3XXD Angioneurotic edema, subsequent encounter; T78.09XD Anaphylactic reaction due to other food products, subsequent encounter; Z91.038 Other insect allergy status; E55.9 Vitamin D deficiency, unspecified; E07.9 Disorder of thyroid, unspecified; N20.0 Calculus of kidney; X58.XXXA Exposure to other specified factors, initial encounter
CPT/HCPCS: 36415; 74018; 80076; 82306; 82565; 82947; 83520; 84443; 84520; 84550; 85025; 85652; 86038; 86160; 86376; 86431

== ENCOUNTER → 2023-12-08 | Outpatient (CLI) | payer OTHER, SELFPAY ==
[2023-12-08 13:18] LABS: Anion Gap 10 (5-15); BUN 16 mg/dL (7-18); BUN/Creat Ratio 17.2 RATIO (10-20); Calcium,Total 9.4 mg/dL (8.5-10.1); Chloride 105 mmol/L (98-107); Creatinine, Serum 0.93 mg/dL (0.70-1.30); EST Glomerular Filtration Rate 89 mL/min (>60); Est Glom Filt Rate - Afr Amer 108 mL/min (>60); Glucose 123 mg/dL (74-106); Potassium 3.8 mmol/L (3.5-5.1); Sodium Level 139 mmol/L (136-145); T4 Free Direct 1.11 ng/dL (0.76-1.46); Thyroid Stim Hormone (TSH) 4.17 uIU/mL (0.358-3.74)
== END | disposition home or self-care (01) ==
LOC: MFPLAB 09:41
PROVIDERS: PCP Family Medicine; Visit Provider Family Medicine
DX: E03.9 Hypothyroidism, unspecified (principal); I10 Essential (primary) hypertension
CPT/HCPCS: 36415; 80048; 84439; 84443

== ENCOUNTER → 2025-07-24 | Outpatient (CLI) | payer OTHER, SELFPAY ==
--- OUTSIDE RECORDS SUMMARY | 2025-07-24 17:10 | XMS RPT_ITS | CCD ---
Author Organization [facility] Care Team Providers Care Senior Civil Engineer Name Role Phone Georges Lindsay Attending Unavailable Georges Lindsay Primary Care Unavailable Angélica, Georges Primary Care Unavailable Armando Olivarez Attending Unavailable Armando Olivarez Referring Unavailable Georges Lindsay Primary Care Unavailable Georges Lindsay Attending Unavailable Angélica, Georges Primary Care Unavailable Armando Olivarez Attending Unavailable Armando Olivarez Referring Unavailable Georges Lindsay Primary Care Unavailable Jose Tripp Attending Unavailable JuanisArmando schmid Referring Unavailable Georges Lindsay Primary Care Unavailable Armando Olivarez Attending Unavailable Medications Current Medications Medication Drug Class(es) Dates Sig (Normalized) Sig (Original) acetaminophen 325 mg / oxyCODONE hydrochloride 5 mg oral tablet (3 sources) Opioid Agonist Start: 06-27-2023 take 1 tablet by mouth every eight hours Oxycodone-Acetaminop hen (Percocet) 5-325 mg tablet Active 1 TABLET PO Q8H 12 3 June 27, 2023 ciprofloxacin 500 mg oral tablet (2 sources) Quinolone Antimicrobial Start: 07-03-2023 take 500 mg by mouth twice daily Ciprofloxacin Hcl Active 500 MG PO TWICE A DAY July 02, 2023 11:00pm lisinopril 20 mg oral tablet (3 sources) Angiotensin Converting Enzyme Inhibitor Start: 06-27-2023 take 20 mg by mouth once daily Lisinopril Active 20 MG PO DAILY June 26, 2023 11:00pm ondansetron 4 mg disintegrating oral tablet (3 sources) Serotonin-3 Receptor Antagonist Start: 06-27-2023 take 4 mg by mouth every eight hours as needed Ondansetron Active 4 MG PO EVERY 8 HOURS NEEDED June 26, 2023 11:00pm oxyCODONE hydrochloride 5 mg oral tablet (2 sources) Opioid Agonist Start: 07-03-2023 take 5 mg by mouth every six hours Oxycodone Active 5 MG PO EVERY 6 HOURS 14 July 03, 2023 phenazopyridine hydrochloride 100 mg oral tablet (2 sources) Start: 07-03-2023 take 1 tablet by mouth three times daily Phenazopyridine (Pyridium) 100 mg tablet Active 100 MG PO THREE TIMES A DAY July 02, 2023 11:00pm tamsulosin hydrochloride 0.4 mg oral capsule (2 sources) alpha-Adrenergic Polly Start: 07-03-2023 take 1 capsule by mouth once daily Tamsulosin (Flomax) 0.4 mg capsule Active 0.4 MG PO DAILY July 02, 2023 11:00pm Completed/Discontinued Medications Medication Drug Class(es) Dates Sig (Normalized) Sig (Original) oseltamivir 75 mg oral capsule (5 sources) Neuraminidase Inhibitor Start: 11-16-2019 End: 11-21-2019 take 75 mg by mouth twice daily Oseltamivir Discontinued 75 MG PO TWICE A DAY 07 09November 16, 2019 12:00am November 21, 2019 12:08am Problems Active Problems Problem Classification Problem Date Documented Da te Episodic/Chronic Essential hypertension (1 source) Essential (primary) hypertension; Translations: [Essential (primary) hypertension] Onset: 07-17-2023 Chronic Influenza (5 sources) Influenza; Translations: [Influenza due to unidentified influenza virus with other respiratory manifestations] 11-16-2019 Episodic Nausea and vomiting (3 sources) Nausea and vomiting; Translations: [Nausea with vomiting, unspecified] 06-27-2023 Episodic Other upper respiratory infections (1 source) Chronic sinusitis, unspecified; Translations: [Chronic sinusitis, unspecified] Onset: 12-07-2023 Chronic Thyroid disorders (1 source) Hypothyroidism, unspecified; Translations: [Hypothyroidism, unspecified] Onset: 12-12-2023 Chronic Past or Other Problems Problem Classification Problem Date Documented Da te Episodic/Chronic Abdominal pain (4 sources) Abdominal pain; Translations: [Unspecified abdominal pain] Onset: 07-01-2023 06-27-2023 Episodic Calculus of urinary tract (5 sources) Kidney stone; Translations: [Calculus of kidney] Onset: 07-08-2023 06-27-2023 Episodic Results Test Name Value Interpretation Reference Range Facility Basic Metabolic Profile (BMP )on 12-08-2023 BUN/CRE 17.2 RATIO Normal 10-20 [facility] Comment on above: Order Comment: Order Date: 12/02/23Order Info: 666-10 - BMPOrder Info: 3015-12 - TSHOrder Info: 3024-7 - T4F Performed By: #### L 501.9520, L500.2500, L506.0400 ####[facility] [address] [place], [address] CA,Total 9.4 mg/dL Normal 8.5-10.1 [facility] Comment on above: Order Comment: Order Date: 12/02/23Order Info: 666-10 - BMPOrder Info: 3015-12 - TSHOrder Info: 3024-7 - T4F Performed By: #### L 501.9520, L500.2500, L506.0400 ####[facility] [address] [place], [address] Chloride [Moles/Vol] 105 mmol/L Normal 98-107 [facility] Comment on above: Order Comment: Order Date: 12/02/23Order Info: 666-10 - BMPOrder Info: 3015-12 - TSHOrder Info: 3024-7 - T4F Performed By: #### L 501.9520, L500.2500, L506.0400 ####[facility] [address] [place], [address] CO2 [Moles/Vol] 24.0 mmol/L Normal 21.0-32.0 [facility] Comment on above: Order Comment: Order Date: 12/02/23Order Info: 666-10 - BMPOrder Info: 3015-12 - TSHOrder Info: 3024-7 - T4F Performed By: #### L 501.9520, L500.2500, L506.0400 ####[facility] [address] [place], [address] Creatinine [Mass/Vol] 0.93 mg/dL Normal 0.70-1.30 [facility] Comment on above: Order Comment: Order Date: 12/02/23Order Info: 666-10 - BMPOrder Info: 3015-12 - TSHOrder Info: 3024-04 - T4F Result Comment: The validity of the calculated GFR GFRAA in patients over 70 years has not been determined. Clinical correlation is essential. Performed By: #### L 501.9520, L500.2500, L506.0400 ####[facility] [address] [place], [address] EST GFR - AA 108 mL/min Normal >60 [facility] Comment on above: Order Comment: Order Date: 12/02/23Order Info: 666-10 - BMPOrder Info: 3015-12 - TSHOrder Info: 7 - T4F Result Comment: Afri can Bhutanese GFR Calc Performed By: #### L 501.9520, L500.2500, L506.0400 ####[facility] [address] [place], [address] GAP 10 Normal 5-15 [facility] Comment on above: Order Comment: Order Date: 12/02/23Order Info: 666-10 - BMPOrder Info: 3015-12 - TSHOrder Info: 3024-04 - T4F Performed By: #### L 501.9520, L500.2500, L506.0400 ####[facility] [address] [place], [address] GFR/1.73 sq M.predicted among non-blacks MDRD (S/P/Bld) [Vol rate/Area] 89 mL/min/{1.73_m2} Normal >60 [facility] Comment on above: Order Comment: Order Date: 12/02/23Order Info: 666-10 - BMPOrder Info: 3015-12 - TSHOrder Info: 3027 - T4F Result Comment: Non- GFR Calc Performed By: #### L 501.9520, L500.2500, L506.0400 ####[facility] [address] [place], [address] Glucose [Mass/Vol] 123 mg/dL High 74-106 [facility] Comment on above: Order Comment: Order Date: 12/02/23Order Info: 666- - BMPOrder Info: 3015-3 - TSHOrder Info: 3024-7 - T4F Result Comment: Fast ing Glucose result from 100 to 125 mg/dL suggests IMPAIRED HOMEOSTASIS per A.D.A. criteria. Performed By: #### L 501.9520, L500.2500, L506.0400 ####[facility] [address] [place], [address] Potassium [Moles/Vol] 3.8 mmol/L Normal 3.5-5.1 [facility] Comment on above: Order Comment: Order Date: 12/02/23Order Info: 666-10 - BMPOrder Info: 3015-12 - TSHOrder Info: 3024-7 - T4F Performed By: #### L 501.9520, L500.2500, L506.0400 ####[facility] [address] [place], [address] Sodium [Moles/Vol] 139 mmol/L Normal 136-145 [facility] Comment on above: Order Comment: Order Date: 12/02/23Order Info: 666-10 - BMPOrder Info: 3 - TSHOrder Info: 3024-7 - T4F Performed By: #### L 501.9520, L500.2500, L506.0400 ####[facility] [address] [place], [address] Urea nitrogen [Mass/Vol] 16 mg/dL Normal 7-18 [facility] Comment on above: Order Comment: Order Date: 12/02/23Order Info: 666-10 - BMPOrder Info: 3 - TSHOrder Info: 3024-7 - T4F Performed By: #### L 501.9520, L500.2500, L506.0400 ####[facility] [address] [place], [address] Basophil percentageOrdered B y: Georges Lindsay on 12-08-2023 Chloride [Moles/Vol] 105 mmol/L 98-107 [facility] Glucose [Mass/Vol] 123 mg/dL 74-106 [facility] Comment on above: Fasting Glucose resu lt from 100 to 125 mg/dL suggests IMPAIRED HOMEOSTASIS per A.D.A. criteria. Potassium [Moles/Vol] 3.8 mmol/L 3.5-5.1 [facility] Sodium [Moles/Vol] 139 mmol/L 136-145 [facility] Laboratory - Chemistry and C hemistry - challengeOrdered By: Georges Lindsay on 12-08-2023 CO2 [Moles/Vol] 24.0 mmol/L 21.0-32.0 [facility] Urea nitrogen/Creatinine [Mass ratio] 17.2 mg/mg 10-20 [facility] No Panel InformationOrdered By: Georges Lindsay on 12-08-2023 Estimated GFR (MDRD) Amer 108 mL/min >60 [facility] Comment on above: GFR Calc Estimated GFR (MDRD) Non-Af Amer 89 mL/min >60 [facility] Comment on above: Non- GFR Calc Serum or plasma calcium brittany urement (mass/volume)Ordered By: Georges Lindsay on 12-08-2023 Calcium [Mass/Vol] 9.4 mg/dL 8.5-10.1 [facility] Serum or plasma creatinine m easurement (mass/volume)Ordered By: Georges Lindsay on 12-08-2023 Creatinine [Mass/Vol] 0.93 mg/dL 0.70-1.30 [facility] Comment on above: The validity of the calculated GFR & GFRAA in patients over 70 years has not been determined. Clinical correlation is essential. Serum or plasma thyroid stim ulating hormone (TSH) measurement (units/volume)Ordered By: Georges Lindsay on 12-08-2023 TSH Qn 4.17 uIU/mL 0.358-3.74 [facility] Serum or plasma urea nitroge n measurement (mass/volume)Ordered By: Georges Lindsay on 12-08-2023 Urea nitrogen [Mass/Vol] 16 mg/dL 7-18 [facility] T4 Free Directon 12-08-2023 T4 FREE DIRECT 1.11 ng/dL Normal 0.76-1.46 [facility] Comment on above: Order Comment: Order Date: 12/02/23Order Info: 0667-1 - BMPOrder Info: 3 - TSHOrder Info: 3024-04 - T4F Performed By: #### L 501.9520, L500.2500, L506.0400 ####[facility] [address] [place], [place], [id number] Thin prep Papanicolaou smear with manual screeningOrdered By: Georges Lindsay on 12-08-2023 Thin prep Papanicolaou smear with manual screening 10 5-15 [facility] Thin prep Papanicolaou smear with manual screening 1.11 ng/dL 0.76-1.46 [facility] Thyroid Stim Hormone (TSH)on 12-08-2023 TSH 4.17 uIU/mL High 0.358-3.74 [facility] Comment on above: Order Comment: Order Date: 12/02/23Order Info: 0667-1 - BMPOrder Info: 3015-12 - TSHOrder Info: 3024-04 - T4F Performed By: #### L 501.9520, L500.2500, L506.0400 ####[facility] [address] [place], [place], [id number] Miscellaneous Lab Procedureo n 10-17-2023 [facility] Normal [facility] Comment on above: Order Comment: PER P T-JUST THIS [id number] ALPHA-GAL IgE SER/[id number] ALPHA-GAL IgE SER/RT Result Comment: TEST RESULTS LIMITS Class Description: Levels of Specific IgE Class Description of Class ----- < 0.10 0 Negative 0.10 - 0.31 0/I Equivocal/Low 0.32 - 0.55 I Low 0.56 - 1.40 II Moderate 1.41 - 3.90 III High 3.91 - 19.00 IV Very High 19.01 - 100.00 V Very High >100.00 Very High Immunoglobulin E, Total 6 IU/mL 6-495 [id number] Alpha-Gal <0.10 kU/L Class 0 [id number] Beef <0.10 kU/L Class 0 P915-UuQ Pork <0.10 kU/L Class 0 I984-PjW Chung <0.10 kU/L Class 0 TESTING PERFORMED AT [facility]. ORIGINAL REPORT ON FILE IN LAB CONTAINS ADDITIONAL TEST SITE INFORMATION. Performed By: #### L 3100.5475, L501.1000, L3300.6900, L501.1400, L100.0100, L801.1541, L501.1105, L3100.5800, L506.1000, L505.7010, L3400.5105, L500.3400, L501.9520, L501.0100, L101.9900 ####[facility] [address], [address] Complement C4on 10-15-2023 COMPLEMENT, C4 38 mg/dL Normal 12-38 [facility] Comment on above: Order Comment: PER P T-JUST THIS ORDER Performed By: #### L 3100.5475, L501.1000, L3300.6900, L501.1400, L100.0100, L801.1541, L501.1105, L3100.5800, L506.1000, L505.7010, L3400.5105, L500.3400, L501.9520, L501.0100, L101.9900 ####[facility] [address] [place], [place], [address] Thyroid Peroxidase ABon - THYR PEROX AB < 9 Normal 0-34 [facility] Comment on above: Order Comment: PER P T-JUST THIS ORDER Result Comment: Perf ormed at: - [facility] [address] [id number] Skein Spooler: Nilay Aguila PhD, Phone: [phone] Performed at: - [facility] [address] [id number] Skein Spooler: Kanika Joyce MD, Phone: [phone] Performed By: #### L 3100.5475, L501.1000, L3300.6900, L501.1400, L100.0100, L801.1541, L501.1105, L3100.5800, L506.1000, L505.7010, L3400.5105, L500.3400, L501.9520, L501.0100, L101.9900 ####[facility] [address] [place], [address] Tryptaseon 10-15-2023 TRYPTASE 12.8 ug/L Normal 2.2-13.2 [facility] Comment on above: Order Comment: PER P T-JUST THIS ORDER Performed By: #### L 3100.5475, L501.1000, L3300.6900, L501.1400, L100.0100, L801.1541, L501.1105, L3100.5800, L506.1000, L505.7010, L3400.5105, L500.3400, L501.9520, L501.0100, L101.9900 ####[facility] [address] [place], [place], [id number] ANTINUCLEAR ANTIBODIES DIREC Ton 10-14-2023 YULIA,DIRECT Negative Normal Negative [facility] Comment on above: Order Comment: PER P T-JUST THIS ORDER Result Comment: Perf ormed at: CB - [facility] [address] [id number] Skein Spooler: Nilay Aguila PhD, Phone: [phone] Performed By: #### L 3100.5475, L501.1000, L3300.6900, L501.1400, L100.0100, L801.1541, L501.1105, L3100.5800, L506.1000, L505.7010, L3400.5105, L500.3400, L501.9520, L501.0100, L101.9900 ####[facility] [address] [facility] [place], [address] Abdomen Single Viewon 2023 Abdomen Single View [facility] Imaging Services [address] [place] [address] Abdomen Single View MR#: [id number] Acct: [id number] Name: MEGAN MOSS Rep #: [id number] : 1965 M 58 From: Axel Rosario MD PCP: Dr. Georges Lindsay MD Status: REG CLI Study: Abdomen Single View Date of Exam: 10/13/23 Exam# [id number] Ordering Dr: Armando Olivarez MD [id number] EXAM: XR ABDOMEN, 1 VIEW CLINICAL INDICATION: CALCULUS OF KIDNEY TECHNIQUE: Frontal supine view of the abdomen/pelvis. COMPARISON: XR Abdomen dated 07/09/2023 FINDINGS: GASTROINTESTINAL TRACT: Normal bowel gas pattern. ORGANS: Residual 5 mm calcification projecting over the right kidney. Previously noted stones within the lower and inner pole region of the left kidney are no longer seen. Left double-J ureteral stent catheter has been removed. BONES/JOINTS: No acute abnormality. RAD/Abdomen Single View IMPRESSION: Right nephrolithiasis. No definite left renal stone identified Electronically Signed: Axel Rosario MD at 9:30 EST , CC: Dr. Georges Lindsay MD; Dr. Armando Olivarez MD Handyperson: Signed Normal [facility] Absolute lymphocyte countOrd ered By: Armando Olivarez on 10-13-2023 Lymphocytes Auto (Unsp spec) [#/Vol] 2.04 10*3/uL 0.83-4.51 [facility] BUNon 10-13-2023 Urea nitrogen [Mass/Vol] 13 mg/dL Normal 7-18 [facility] Comment on above: Order Comment: PER P T-JUST THIS ORDER [id number] ALPHA-GAL IgE SER/RT Performed By: #### L 3100.5475, L501.1000, L3300.6900, L501.1400, L100.0100, L801.1541, L501.1105, L3100.5800, L506.1000, L505.7010, L3400.5105, L500.3400, L501.9520, L501.0100, L101.9900 #### [facility] Laboratory [facility] [address] [place], [address] Basophil percentageOrdered B y: Armando Olivarez on 10-13-2023 Basophils/100 WBC (Bld) 0.2 % 0-1 [facility] Bilirubin [Mass/Vol] 0.60 mg/dL 0.20-1.00 [facility] Comment on above: For patients on eltr ombopag therapy, use of Dimension [place] TBIL is not recommended. Eosinophils/100 WBC (Bld) 3.0 % 0-5 [facility] Glucose [Mass/Vol] 104 mg/dL 74-106 [facility] Comment on above: Fasting Glucose resu lt from 100 to 125 mg/dL suggests IMPAIRED HOMEOSTASIS per A.D.A. criteria. Neutrophils (Bld) [#/Vol] 6.8 10*3/uL 2.0-7.7 [facility] Neutrophils/100 WBC (Bld) 67.3 % 47-70 [facility] Protein [Mass/Vol] 7.7 g/dL 6.4-8.2 [facility] WBC (Bld) [#/Vol] 10.1 10*3/uL 4.4-11.0 [facility] Blood erythrocytes count (nu mber/volume)Ordered By: Armando Olivarez on 10-13-2023 RBC (Bld) [#/Vol] 5.41 10*6/uL 4.6-6.2 [facility] Blood hemoglobin measurement (mass/volume)Ordered By: Armando Olivarez on 10-13-2023 Hemoglobin (Bld) [Mass/Vol] 15.4 g/dL 13.0-16.5 [facility] Blood lymphocytes/100 leukoc ytesOrdered By: Armando Olivarez on 10-13-2023 Lymphocytes/100 WBC (Bld) 20.2 % 19-41 [facility] Blood monocytes/100 leukocyt esOrdered By: Armando Olivarez on 10-13-2023 Monocytes/100 WBC (Bld) 8.3 % 0-10 [facility] Blood platelet mean volumeOr dered By: Armando Olivarez on 10-13-2023 Platelet mean volume (Bld) [Entitic vol] 11.1 fL 6.2-12.0 [facility] CBC W/Diff, Automatedon Absolute Lymph 2.04 X10 3/uL Normal 0.83-4.51 [facility] Comment on above: Order Comment: PER P T-JUST THIS ORDER Performed By: #### L 3100.5475, L501.1000, L3300.6900, L501.1400, L100.0100, L801.1541, L501.1105, L3100.5800, L506.1000, L505.7010, L3400.5105, L500.3400, L501.9520, L501.0100, L101.9900 #### [facility] [address] [place] [address]. [place], [address] Absolute Neut 6.8 X10 3/uL Normal 2.0-7.7 [facility] Comment on above: Order Comment: PER P T-JUST THIS ORDER Performed By: #### L 3100.5475, L501.1000, L3300.6900, L501.1400, L100.0100, L801.1541, L501.1105, L3100.5800, L506.1000, L505.7010, L3400.5105, L500.3400, L501.9520, L501.0100, L101.9900 #### [facility] [address] [place], [address] Basophils/100 WBC (Bld) 0.2 % Normal 0-1 [facility] Comment on above: Order Comment: PER P T-JUST THIS ORDER Performed By: #### L 3100.5475, L501.1000, L3300.6900, L501.1400, L100.0100, L801.1541, L501.1105, L3100.5800, L506.1000, L505.7010, L3400.5105, L500.3400, L501.9520, L501.0100, L101.9900 #### [facility] [address] [facility] [place], [address] Eosinophils/100 WBC (Bld) 3.0 % Normal 0-5 [facility] Comment on above: Order Comment: PER P T-JUST THIS ORDER Performed By: #### L 3100.5475, L501.1000, L3300.6900, L501.1400, L100.0100, L801.1541, L501.1105, L3100.5800, L506.1000, L505.7010, L3400.5105, L500.3400, L501.9520, L501.0100, L101.9900 #### [facility] [address] [facility] [place], [address] Erythrocyte distribution width (RBC) [Ratio] 14.1 % Normal 11.6-14.6 [facility] Comment on above: Order Comment: PER P T-JUST THIS ORDER Performed By: #### L 3100.5475, L501.1000, L3300.6900, L501.1400, L100.0100, L801.1541, L501.1105, L3100.5800, L506.1000, L505.7010, L3400.5105, L500.3400, L501.9520, L501.0100, L101.9900 #### [facility] [address] [place] [place], [address] Hematocrit (Bld) [Volume fraction] 46.8 % Normal 40-54 [facility] Comment on above: Order Comment: PER P T-JUST THIS ORDER Performed By: #### L 3100.5475, L501.1000, L3300.6900, L501.1400, L100.0100, L801.1541, L501.1105, L3100.5800, L506.1000, L505.7010, L3400.5105, L500.3400, L501.9520, L501.0100, L101.9900 #### [facility] [address] [facility] [place], [address] Hemoglobin (Bld) [Mass/Vol] 15.4 g/dL Normal 13.0-16.5 [facility] Comment on above: Order Comment: PER P T-JUST THIS ORDER Performed By: #### L 3100.5475, L501.1000, L3300.6900, L501.1400, L100.0100, L801.1541, L501.1105, L3100.5800, L506.1000, L505.7010, L3400.5105, L500.3400, L501.9520, L501.0100, L101.9900 #### [facility] [address] [place], [address] IG% 1.000 High 0.0-0.9 [facility] Comment on above: Order Comment: PER P T-JUST THIS ORDER Result Comment: IG% - Immature Granulocytes (promyelocytes, myelocytes and metamyelocytes) > 1% indicates that a LEFT SHIFT is Present. Performed By: #### L 3100.5475, L501.1000, L3300.6900, L501.1400, L100.0100, L801.1541, L501.1105, L3100.5800, L506.1000, L505.7010, L3400.5105, L500.3400, L501.9520, L501.0100, L101.9900 #### [facility] [address] [place], [address] Lymphocytes/100 WBC (Bld) 20.2 % Normal 19-41 [facility] Comment on above: Order Comment: PER P T-JUST THIS ORDER Performed By: #### L 3100.5475, L501.1000, L3300.6900, L501.1400, L100.0100, L801.1541, L501.1105, L3100.5800, L506.1000, L505.7010, L3400.5105, L500.3400, L501.9520, L501.0100, L101.9900 #### [facility] [address] [place], [address] MCH (RBC) [Entitic mass] 28.5 pg Normal 27.0-32.0 [facility] Comment on above: Order Comment: PER P T-JUST THIS ORDER Performed By: #### L 3100.5475, L501.1000, L3300.6900, L501.1400, L100.0100, L801.1541, L501.1105, L3100.5800, L506.1000, L505.7010, L3400.5105, L500.3400, L501.9520, L501.0100, L101.9900 #### [facility] [address] [facility] [place], [address] MCHC (RBC) [Mass/Vol] 32.9 g/dL Normal 32-36 [facility] Comment on above: Order Comment: PER P T-JUST THIS ORDER Performed By: #### L 3100.5475, L501.1000, L3300.6900, L501.1400, L100.0100, L801.1541, L501.1105, L3100.5800, L506.1000, L505.7010, L3400.5105, L500.3400, L501.9520, L501.0100, L101.9900 #### [facility] [address] [place], [address] MCV (RBC) [Entitic vol] 86.5 fL Normal 80-94 [facility] Comment on above: Order Comment: PER P T-JUST THIS ORDER Performed By: #### L 3100.5475, L501.1000, L3300.6900, L501.1400, L100.0100, L801.1541, L501.1105, L3100.5800, L506.1000, L505.7010, L3400.5105, L500.3400, L501.9520, L501.0100, L101.9900 #### [facility] [address] [facility] [place], [address] Monocytes/100 WBC (Bld) 8.3 % Normal 0-10 [facility] Comment on above: Order Comment: PER P T-JUST THIS ORDER Performed By: #### L 3100.5475, L501.1000, L3300.6900, L501.1400, L100.0100, L801.1541, L501.1105, L3100.5800, L506.1000, L505.7010, L3400.5105, L500.3400, L501.9520, L501.0100, L101.9900 #### [facility] [address] [place], [address] Neutrophils/100 WBC (Bld) 67.3 % Normal 47-70 [facility] Comment on above: Order Comment: PER P T-JUST THIS ORDER Performed By: #### L 3100.5475, L501.1000, L3300.6900, L501.1400, L100.0100, L801.1541, L501.1105, L3100.5800, L506.1000, L505.7010, L3400.5105, L500.3400, L501.9520, L501.0100, L101.9900 #### [facility] [address] [place], [address] Nucleated RBC (Bld) [#/Vol] 0 10*3/uL Normal 0-5 [facility] Comment on above: Order Comment: PER P T-JUST THIS ORDER Performed By: #### L 3100.5475, L501.1000, L3300.6900, L501.1400, L100.0100, L801.1541, L501.1105, L3100.5800, L506.1000, L505.7010, L3400.5105, L500.3400, L501.9520, L501.0100, L101.9900 #### [facility] [address] [place], [address] Platelet mean volume (Bld) [Entitic vol] 11.1 fL Normal 6.2-12.0 [facility] Comment on above: Order Comment: PER P T-JUST THIS ORDER Performed By: #### L 3100.5475, L501.1000, L3300.6900, L501.1400, L100.0100, L801.1541, L501.1105, L3100.5800, L506.1000, L505.7010, L3400.5105, L500.3400, L501.9520, L501.0100, L101.9900 #### [facility] [address] [place], [address] Platelets (Bld) [#/Vol] 287 10*3/uL Normal 150-450 [facility] Comment on above: Order Comment: PER P T-JUST THIS ORDER Performed By: #### L 3100.5475, L501.1000, L3300.6900, L501.1400, L100.0100, L801.1541, L501.1105, L3100.5800, L506.1000, L505.7010, L3400.5105, L500.3400, L501.9520, L501.0100, L101.9900 #### [facility] [address] [place], [address] RBC (Bld) [#/Vol] 5.41 10*6/uL Normal 4.6-6.2 [facility] Comment on above: Order Comment: PER P T-JUST THIS ORDER Performed By: #### L 3100.5475, L501.1000, L3300.6900, L501.1400, L100.0100, L801.1541, L501.1105, L3100.5800, L506.1000, L505.7010, L3400.5105, L500.3400, L501.9520, L501.0100, L101.9900 #### [facility] [address] [place], [address] RDW SD 44.3 fl High 35.1-43.9 [facility] Comment on above: Order Comment: PER P T-JUST THIS ORDER Performed By: #### L 3100.5475, L501.1000, L3300.6900, L501.1400, L100.0100, L801.1541, L501.1105, L3100.5800, L506.1000, L505.7010, L3400.5105, L500.3400, L501.9520, L501.0100, L101.9900 #### [facility] [address] [place], [address] WBC (Bld) [#/Vol] 10.1 10*3/uL Normal 4.4-11.0 [facility] Comment on above: Order Comment: PER P T-JUST THIS ORDER Performed By: #### L 3100.5475, L501.1000, L3300.6900, L501.1400, L100.0100, L801.1541, L501.1105, L3100.5800, L506.1000, L505.7010, L3400.5105, L500.3400, L501.9520, L501.0100, L101.9900 #### [facility] [address] [place], [place], [id number] Determination of erythrocyte mean corpuscular volume (MCV)Ordered By: Armando Olivarez on 10-13-2023 MCV (RBC) [Entitic vol] 86.5 fL 80-94 [facility] Direct bilirubinOrdered By: Armando Olivarez on 10-13-2023 Bilirubin.direct [Mass/Vol] 0.14 mg/dL 0.00-0.30 [facility] Erythrocyte Sed Rateon 10-13 SED RATE 3 mm/hr Normal 0-20 [facility] Comment on above: Order Comment: PER P T-JUST THIS ORDER Performed By: #### L 3100.5475, L501.1000, L3300.6900, L501.1400, L100.0100, L801.1541, L501.1105, L3100.5800, L506.1000, L505.7010, L3400.5105, L500.3400, L501.9520, L501.0100, L101.9900 #### [facility] [address], [address] Erythrocyte sedimentation ra teOrdered By: Armando Olivarez on 10-13-2023 ESR (Bld) [Velocity] 3 mm/h 0-20 [facility] Glucoseon 10-13-2023 Glucose [Mass/Vol] 104 mg/dL Normal 74-106 [facility] Comment on above: Order Comment: PER P T-JUST THIS ORDER [id number] ALPHA-GAL IgE SER/RT Result Comment: Fast ing Glucose result from 100 to 125 mg/dL suggests IMPAIRED HOMEOSTASIS per A.D.A. criteria. Performed By: #### L 3100.5475, L501.1000, L3300.6900, L501.1400, L100.0100, L801.1541, L501.1105, L3100.5800, L506.1000, L505.7010, L3400.5105, L500.3400, L501.9520, L501.0100, L101.9900 #### [facility] [address] [place], [address] Hematocrit Auto (Bld) [Volum e fraction]Ordered By: Armando Olivarez on 10-13-2023 Hematocrit (Bld) [Volume fraction] 46.8 % 40-54 [facility] - Chemistry and C hemistry - challengeOrdered By: [facility] on 10-13-2023 ALP [Catalytic activity/Vol] 60 U/L 45-117 [facility] ALT [Catalytic activity/Vol] 54 U/L 16-61 [facility] Globulin (S) [Mass/Vol] 3.8 g/dL 2.2-4.2 [facility] - Hematology and Cell countsOrdered By: Armando [facility] on 10-13-2023 Erythrocyte distribution width (RBC) [Entitic vol] 44.3 fL 35.1-43.9 [facility] Erythrocyte distribution width (RBC) [Ratio] 14.1 % 11.6-14.6 [facility] Immature granulocytes/100 WBC (Bld) 1.000 % 0.0-0.9 [facility] Comment on above: IG% - Immature Granu locytes (promyelocytes, myelocytes and metamyelocytes) > 1% indicates that a LEFT SHIFT is Present. MCH (RBC) [Entitic mass] 28.5 pg 27.0-32.0 [facility] Nucleated RBC/100 WBC (Bld) [Ratio] 0 % 0-5 [facility] Liver Profileon 10-13-2023 Albumin [Mass/Vol] 3.9 g/dL Normal 3.2-5.0 [facility] Comment on above: Order Comment: PER P T-JUST THIS ORDER [id number] ALPHA-GAL IgE SER/RT Performed By: #### L 3100.5475, L501.1000, L3300.6900, L501.1400, L100.0100, L801.1541, L501.1105, L3100.5800, L506.1000, L505.7010, L3400.5105, L500.3400, L501.9520, L501.0100, L101.9900 #### [facility] [address] [facility] [place], [place], [id number] ALK P 60 U/L Normal 45-117 [facility] Comment on above: Order Comment: PER P T-JUST THIS ORDER [id number] ALPHA-GAL IgE SER/RT Performed By: #### L 3100.5475, L501.1000, L3300.6900, L501.1400, L100.0100, L801.1541, L501.1105, L3100.5800, L506.1000, L505.7010, L3400.5105, L500.3400, L501.9520, L501.0100, L101.9900 #### [facility] [address] [place], [address] ALT [Catalytic activity/Vol] 54 U/L Normal 16-61 [facility] Comment on above: Order Comment: PER P T-JUST THIS ORDER [id number] ALPHA-GAL IgE SER/RT Performed By: #### L 3100.5475, L501.1000, L3300.6900, L501.1400, L100.0100, L801.1541, L501.1105, L3100.5800, L506.1000, L505.7010, L3400.5105, L500.3400, L501.9520, L501.0100, L101.9900 #### [facility] [address] [facility] [place], [address] AST [Catalytic activity/Vol] 32 U/L Normal 15-37 [facility] Comment on above: Order Comment: PER P T-JUST THIS ORDER [id number] ALPHA-GAL IgE SER/RT Performed By: #### L 3100.5475, L501.1000, L3300.6900, L501.1400, L100.0100, L801.1541, L501.1105, L3100.5800, L506.1000, L505.7010, L3400.5105, L500.3400, L501.9520, L501.0100, L101.9900 #### [facility] [address] [place], [address] Bilirubin [Mass/Vol] 0.60 mg/dL Normal 0.20-1.00 [facility] Comment on above: Order Comment: PER P T-JUST THIS ORDER [id number] ALPHA-GAL IgE SER/RT Result Comment: For patients on eltrombopag therapy, use of Dimension [place] TBIL is not recommended. Performed By: #### L 3100.5475, L501.1000, L3300.6900, L501.1400, L100.0100, L801.1541, L501.1105, L3100.5800, L506.1000, L505.7010, L3400.5105, L500.3400, L501.9520, L501.0100, L101.9900 #### [facility] [address] [place], [address] Bilirubin.direct [Mass/Vol] 0.14 mg/dL Normal 0.00-0.30 [facility] Comment on above: Order Comment: PER P T-JUST THIS ORDER [id number] ALPHA-GAL IgE SER/RT Performed By: #### L 3100.5475, L501.1000, L3300.6900, L501.1400, L100.0100, L801.1541, L501.1105, L3100.5800, L506.1000, L505.7010, L3400.5105, L500.3400, L501.9520, L501.0100, L101.9900 #### [facility] [address] [place], [address] Globulin (S) [Mass/Vol] 3.8 g/dL Normal 2.2-4.2 [facility] Comment on above: Order Comment: PER P T-JUST THIS ORDER [id number] ALPHA-GAL IgE SER/RT Performed By: #### L 3100.5475, L501.1000, L3300.6900, L501.1400, L100.0100, L801.1541, L501.1105, L3100.5800, L506.1000, L505.7010, L3400.5105, L500.3400, L501.9520, L501.0100, L101.9900 #### [facility] [address], [address] T PROT 7.7 g/dL Normal 6.4-8.2 [facility] Comment on above: Order Comment: PER P T-JUST THIS ORDER [id number] ALPHA-GAL IgE SER/RT Performed By: #### L 3100.5475, L501.1000, L3300.6900, L501.1400, L100.0100, L801.1541, L501.1105, L3100.5800, L506.1000, L505.7010, L3400.5105, L500.3400, L501.9520, L501.0100, L101.9900 #### [facility] [address] [place], [address] MCHC Auto (RBC) [Mass/Vol]Or dered By: Armando Olivarez on 10-13-2023 MCHC (RBC) [Mass/Vol] 32.9 g/dL 32-36 [facility] No Panel InformationOrdered By: Jordon Sheppard on 10-13-2023 Anti-Nuclear Antibody Screen Negative Negative [facility] Comment on above: Performed at: [facility] [address] [id number] Director: Nilay Aguila PhD, Phone: [phone] Miscellaneous Test See comment [facility] Comment on above: TEST RESULTS LIMITS lass Description: Levels of Specific IgE Class Description of Class ----- < 0.10 0 Negative 0.10 - 0.31 0/I Equivocal/Low 0.32 - 0.55 I Low 0.56 - 1.40 II Moderate 1.41 - 3.90 III High 3.91 - 19.00 IV Very High19.01 - 100.00 V Very High >100.00 Very High Immunoglobulin E, Total 6 IU/mL [id number] Alpha-Gal <0.10 kU/L Class [id number] Beef <0.10 kU/L Class [id number]-[id number] Pork <0.10 kU/L Class [id number] Chung <0.10 kU/L Class 0 TESTING PERFORMED AT [facility]. ORIGINAL REPORT ON FILE IN LAB CONTAINS ADDITIONAL TEST SITE INFORMATION. Tryptase 12.8 ug/L 2.2-13.2 [facility] No Panel InformationOrdered By: Armando Olivarez on 10-13-2023 Estimated GFR (MDRD) Amer 105 mL/min >60 [facility] Comment on above: GFR Calc Estimated GFR (MDRD) Non-Af Amer 87 mL/min >60 [facility] Comment on above: Non- GFR Calc Thyroid Stimulating Hormone (TSH) 5.65 uIU/mL 0.358-3.74 [facility] Vitamin D 25-Hydroxy 19.1 ng/mL [facility] Comment on above: Vitamin D 25(OH) Sta tus Range Deficiency <20 ng/mL (50nmol/L) Insufficiency 20 - 30 ng/mL (50 - 75 nmol/L) Sufficiency 30 - 100 ng/mL (75 - 250 nmol/L) Toxicity >100 ng/mL (>250 nmol/L) Platelets bldOrdered By: Tesfaye Olivarez on 10-13-2023 Platelets (Bld) [#/Vol] 287 10*3/uL 150-450 [facility] Rheumatoid Factoron 10-13-19 24 RHEUMATOID FAC < 10.0 Normal <15 [facility] Comment on above: Order Comment: PER P T-JUST THIS [id number] ALPHA-GAL IgE SER/RT Performed By: #### L 3100.5475, L501.1000, L3300.6900, L501.1400, L100.0100, L801.1541, L501.1105, L3100.5800, L506.1000, L505.7010, L3400.5105, L500.3400, L501.9520, L501.0100, L101.9900 ####[facility] [address] [place], [place], [address] Serum Creatinine AND GFRon 0 10-13-2023 Creatinine [Mass/Vol] 0.95 mg/dL Normal 0.70-1.30 [facility] Comment on above: Order Comment: PER P T-JUST THIS ORDER [id number] ALPHA-GAL IgE SER/RT Result Comment: The validity of the calculated GFR GFRAA in patients over 70 years has not been determined. Clinical correlation is essential. Performed By: #### L 3100.5475, L501.1000, L3300.6900, L501.1400, L100.0100, L801.1541, L501.1105, L3100.5800, L506.1000, L505.7010, L3400.5105, L500.3400, L501.9520, L501.0100, L101.9900 #### [facility] [address] [place], [place], [address] EST GFR - AA 105 mL/min Normal >60 [facility] Comment on above: Order Comment: PER P T-JUST THIS ORDER [id number] ALPHA-GAL IgE SER/RT Result Comment: Afri can Bhutanese GFR Calc Performed By: #### L 3100.5475, L501.1000, L3300.6900, L501.1400, L100.0100, L801.1541, L501.1105, L3100.5800, L506.1000, L505.7010, L3400.5105, L500.3400, L501.9520, L501.0100, L101.9900 #### [facility] [address] [place], [place], [address] GFR/1.73 sq M.predicted among non-blacks MDRD (S/P/Bld) [Vol rate/Area] 87 mL/min/{1.73_m2} Normal >60 [facility] Comment on above: Order Comment: PER P T-JUST THIS ORDER [id number] ALPHA-GAL IgE SER/RT Result Comment: Non- GFR Calc Performed By: #### L 3100.5475, L501.1000, L3300.6900, L501.1400, L100.0100, L801.1541, L501.1105, L3100.5800, L506.1000, L505.7010, L3400.5105, L500.3400, L501.9520, L501.0100, L101.9900 #### [facility] [address], [address] Serum or plasma albumin brittany urement (mass/volume)Ordered By: Armando Olivarez on 10-13-2023 Albumin [Mass/Vol] 3.9 g/dL 3.2-5.0 [facility] Serum or plasma complement C 4 measurement (mass/volume)Ordered By: Jordon Sheppard on 10-13-2023 Complement C4 [Mass/Vol] 38 mg/dL 12-38 [facility] Serum or plasma creatinine m easurement (mass/volume)Ordered By: Armando Olivarez on 10-13-2023 Creatinine [Mass/Vol] 0.95 mg/dL 0.70-1.30 [facility] Comment on above: The validity of the calculated GFR & GFRAA in patients over 70 years has not been determined. Clinical correlation is essential. Serum or plasma thyroperoxid ase antibody assay (units/volume)Ordered By: Jordon Sheppard on 10-13-2023 TPO Ab Qn [IU]/mL 0-34 [facility] Comment on above: Performed at: [address] [id number] Director: Nilay Aguila PhD, Phone: [phone] at: [facility] [id number] Director: Kanika Joyce MD, Phone: [phone] Serum or plasma urea nitroge n measurement (mass/volume)Ordered By: Armando Olivarez on 10-13-2023 Urea nitrogen [Mass/Vol] 13 mg/dL 7-18 [facility] Serum or plasma uric acid me asurement (mass/volume)Ordered By: Armando Olivarez on 10-13-2023 Urate [Mass/Vol] 7.0 mg/dL 3.5-7.2 [facility] Comment on above: The drugs N-Acetylcy steine and Metamizole may falsely depress this assay. Serum rheumatoid factor dete ctionOrdered By: Armando Olivarez on 10-13-2023 Rheumatoid factor Ql (S) < 10.0 IU/mL <15 [facility] Thin prep Papanicolaou smear with manual screeningOrdered By: Armando Olivarez on 10-13-2023 Thin prep Papanicolaou smear with manual screening 32 U/L 15-37 [facility] Thyroid Stim Hormone (TSH)on 10-13-2023 TSH 5.65 uIU/mL High 0.358-3.74 [facility] Comment on above: Order Comment: PER P T-JUST THIS [id number] ALPHA-GAL IgE SER/RT Performed By: #### L 3100.5475, L501.1000, L3300.6900, L501.1400, L100.0100, L801.1541, L501.1105, L3100.5800, L506.1000, L505.7010, L3400.5105, L500.3400, L501.9520, L501.0100, L101.9900 ####[facility] [address], [address] Uric Acidon 10-13-2023 URIC 7.0 mg/dL Normal 3.5-7.2 [facility] Comment on above: Order Comment: PER P T-JUST THIS ORDER [id number] ALPHA-GAL IgE SER/RT Result Comment: The drugs N-Acetylcysteine and Metamizole may falsely depress this assay. Performed By: #### L 3100.5475, L501.1000, L3300.6900, L501.1400, L100.0100, L801.1541, L501.1105, L3100.5800, L506.1000, L505.7010, L3400.5105, L500.3400, L501.9520, L501.0100, L101.9900 #### [facility] [address] [place], [place], [id number] Vitamin D,25 Hydroxyon 10-13 Vitamin D 25-OH 19.1 ng/mL Normal [facility] Comment on above: Order Comment: PER P T-JUST THIS ORDER Result Comment: Marianne min D 25(OH) Status Range Deficiency <20 ng/mL (50nmol/L) Insufficiency 20 - 30 ng/mL (50 - 75 nmol/L) Sufficiency 30 - 100 ng/mL (75 - 250 nmol/L) Toxicity >100 ng/mL (>250 nmol/L) Performed By: #### L 3100.5475, L501.1000, L3300.6900, L501.1400, L100.0100, L801.1541, L501.1105, L3100.5800, L506.1000, L505.7010, L3400.5105, L500.3400, L501.9520, L501.0100, L101.9900 ####[facility] [address] [place], [place], [id number] Protein Electroph, Son 07-16 M-SPIKE Normal [facility] Comment on above: Order Comment: LEELA Rowe ADD SPEP TO BLOOD DRAWN 07/13/23 PER Result Comment: Resu lt: Not Observed Performed By: #### L 3100.3450 ####[facility] [address], [address] Basophil percentageOrdered B y: Georges Lindsay on 07-13-2023 Bilirubin [Mass/Vol] 0.50 mg/dL 0.20-1.00 [facility] Comment on above: For patients on eltr ombopag therapy, use of Dimension [place] TBIL is not recommended. Chloride [Moles/Vol] 104 mmol/L 98-107 [facility] Cholesterol [Mass/Vol] 173 mg/dL <200 [facility] Comment on above: <200 mg/dL Desirable 200-240 mg/dL Borderline >240 mg/dL High Risk Glucose [Mass/Vol] 96 mg/dL 74-106 [facility] Potassium [Moles/Vol] 4.8 mmol/L 3.5-5.1 [facility] Comment on above: Slight Hemolysis, Re sult may be falsely increased. Protein [Mass/Vol] 7.9 g/dL 6.4-8.2 [facility] Sodium [Moles/Vol] 136 mmol/L 136-145 [facility] Triglyceride [Mass/Vol] 235 mg/dL <199 [facility] Comment on above: The drugs N-Acetylcy steine and Metamizole may falsely depress this assay.Serum Triglycerides Reference Interval Normal <150 mg/dL Borderline high 150 - 199 mg/dL High 200 - 499 mg/dL Very High > or = 500 mg/dL Comprehensive Metabolic Prof ilon 07-13-2023 Albumin [Mass/Vol] 3.6 g/dL Normal 3.2-5.0 [facility] Comment on above: Order Comment: Order Date: 01/12/23Order Info: [id number] - CMPOrder Info: [id number] - LIPIDOrder Info: [id number] - PSA Performed By: #### L 501.9910, L500.4050, L500.4100 ####[facility] [address], [address] Albumin/Globulin [Mass ratio] 0.8 {ratio} Low 0.9-2.4 [facility] Comment on above: Order Comment: Order Date: 01/12/23Order Info: [id number] - CMPOrder Info: [id number] - LIPIDOrder Info: [id number] - PSA Performed By: #### L 501.9910, L500.4050, L500.4100 ####[facility] [address] [place], [address] ALK P 60 U/L Normal 45-117 [facility] Comment on above: Order Comment: Order Date: 01/12/23Order Info: [id number] - CMPOrder Info: [id number] - LIPIDOrder Info: [id number] - PSA Performed By: #### L 501.9910, L500.4050, L500.4100 ####[facility] [address] [place], [address] ALT [Catalytic activity/Vol] 40 U/L Normal 16-61 [facility] Comment on above: Order Comment: Order Date: 01/12/23Order Info: [id number] - CMPOrder Info: [id number] - LIPIDOrder Info: [id number] - PSA Performed By: #### L 501.9910, L500.4050, L500.4100 ####[facility] [address] [place], [address] AST [Catalytic activity/Vol] 25 U/L Normal 15-37 [facility] Comment on above: Order Comment: Order Date: 01/12/23Order Info: [id number] - CMPOrder Info: [id number] - LIPIDOrder Info: [id number] - PSA Result Comment: Slig ht Hemolysis, Result may be falsely increased. Performed By: #### L 501.9910, L500.4050, L500.4100 ####[facility] [address] [place], [address] Bilirubin [Mass/Vol] 0.50 mg/dL Normal 0.20-1.00 [facility] Comment on above: Order Comment: Order Date: 01/12/23Order Info: [id number] - CMPOrder Info: [id number] - LIPIDOrder Info: [id number] - PSA Result Comment: For patients on eltrombopag therapy, use of Dimension [place] TBIL is not recommended. Performed By: #### L 501.9910, L500.4050, L500.4100 ####[facility] [address] [place], [address] BUN/CRE 10.3 RATIO Normal 10-20 [facility] Comment on above: Order Comment: Order Date: 01/12/23Order Info: [id number] - CMPOrder Info: [id number] - LIPIDOrder Info: [id number] - PSA Performed By: #### L 501.9910, L500.4050, L500.4100 ####[facility] [address] [place], [address] CA,Total 9.1 mg/dL Normal 8.5-10.1 [facility] Comment on above: Order Comment: Order Date: 01/12/23Order Info: [id number] - CMPOrder Info: [id number] - LIPIDOrder Info: [id number] - PSA Performed By: #### L 501.9910, L500.4050, L500.4100 ####[facility] [address] [place], [address] Chloride [Moles/Vol] 104 mmol/L Normal 98-107 [facility] Comment on above: Order Comment: Order Date: 01/12/23Order Info: [id number] - CMPOrder Info: [id number] - LIPIDOrder Info: [id number] - PSA Performed By: #### L 501.9910, L500.4050, L500.4100 ####[facility] [address] [place], [address] CO2 [Moles/Vol] 24.0 mmol/L Normal 21.0-32.0 [facility] Comment on above: Order Comment: Order Date: 01/12/23Order Info: [id number] - CMPOrder Info: [id number] - LIPIDOrder Info: [id number] - PSA Performed By: #### L 501.9910, L500.4050, L500.4100 ####[facility] [address] [place], [address] Creatinine [Mass/Vol] 1.75 mg/dL High 0.70-1.30 [facility] Comment on above: Order Comment: Order Date: 01/12/23Order Info: [id number] - CMPOrder Info: [id number] - LIPIDOrder Info: [id number] - PSA Result Comment: The validity of the calculated GFR GFRAA in patients over 70 years has not been determined. Clinical correlation is essential. Performed By: #### L 501.9910, L500.4050, L500.4100 ####[facility] [address] [place], [address] EST GFR - AA 52 mL/min Low >60 [facility] Comment on above: Order Comment: Order Date: 01/12/23Order Info: [id number] - CMPOrder Info: [id number] - LIPIDOrder Info: [id number] PSA Result Comment: Afri can Bhutanese GFR Calc Performed By: #### L 501.9910, L500.4050, L500.4100 ####[facility] [address] [place], [address] GAP 8 Normal 5-15 [facility] Comment on above: Order Comment: Order Date: 01/12/23Order Info: [id number] - CMPOrder Info: [id number] - LIPIDOrder Info: [id number] - PSA Performed By: #### L 501.9910, L500.4050, L500.4100 ####[facility] [address] [place], [address] GFR/1.73 sq M.predicted among non-blacks MDRD (S/P/Bld) [Vol rate/Area] 43 mL/min/{1.73_m2} Low >60 [facility] Comment on above: Order Comment: Order Date: 01/12/23Order Info: [id number] - CMPOrder Info: [id number] - LIPIDOrder Info: [id number] - PSA Result Comment: Non- GFR Calc Performed By: #### L 501.9910, L500.4050, L500.4100 ####[facility] [address] [place], [address] Globulin (S) [Mass/Vol] 4.3 g/dL High 2.2-4.2 [facility] Comment on above: Order Comment: Order Date: 01/12/23Order Info: [id number] - CMPOrder Info: [id number] - LIPIDOrder Info: [id number] - PSA Performed By: #### L 501.9910, L500.4050, L500.4100 ####[facility] [address] [place], [address] Glucose [Mass/Vol] 96 mg/dL Normal 74-106 [facility] Comment on above: Order Comment: Order Date: 01/12/23Order Info: [id number] - CMPOrder Info: [id number] - LIPIDOrder Info: [id number] - PSA Performed By: #### L [id number], L500.4050, L500.4100 ####[facility] [address] [place], [address] Potassium [Moles/Vol] 4.8 mmol/L Normal 3.5-5.1 [facility] Comment on above: Order Comment: Order Date: 01/12/23Order Info: [id number] - CMPOrder Info: [id number] - LIPIDOrder Info: [id number] - PSA Result Comment: Slig ht Hemolysis, Result may be falsely increased. Performed By: #### L [id number], L500.4050, L500.4100 ####[facility] [address] [place], [address] Sodium [Moles/Vol] 136 mmol/L Normal 136-145 [facility] Comment on above: Order Comment: Order Date: 01/12/23Order Info: [id number] - CMPOrder Info: [id number] - LIPIDOrder Info: [id number] - PSA Performed By: #### L 501.9910, L500.4050, L500.4100 ####[facility] [address] [place], [address] T PROT 7.9 g/dL Normal 6.4-8.2 [facility] Comment on above: Order Comment: Order Date: 01/12/23Order Info: [id number] - CMPOrder Info: [id number] - LIPIDOrder Info: [id number] - PSA Performed By: #### L 501.9910, L500.4050, L500.4100 ####[facility] [address] [place], [address] Urea nitrogen [Mass/Vol] 18 mg/dL Normal 7-18 [facility] Comment on above: Order Comment: Order Date: 01/12/23Order Info: [id number] - CMPOrder Info: [id number] - LIPIDOrder Info: [id number] - PSA Performed By: #### L 501.9910, L500.4050, L500.4100 ####[facility] [address] [place], [address] Laboratory - Chemistry and C hemistry - challengeOrdered By: Georges Lindsay on 07-13-2023 Albumin [Mass/Vol] 3.4 g/dL 2.9-4.4 [facility] ALP [Catalytic activity/Vol] 60 U/L 45-117 [facility] ALT [Catalytic activity/Vol] 40 U/L 16-61 [facility] CO2 [Moles/Vol] 24.0 mmol/L 21.0-32.0 [facility] Globulin (S) [Mass/Vol] 4.3 g/dL 2.2-4.2 [facility] Urea nitrogen/Creatinine [Mass ratio] 10.3 mg/mg 10-20 [facility] Lipid Profileon 07-13-2023 Cholesterol [Mass/Vol] 173 mg/dL Normal 200 [facility] Comment on above: Order Comment: Order Date: 01/12/23Order Info: [id number] - CMPOrder Info: - LIPIDOrder Info: [id number] - PSA Result Comment: <200 mg/dL Desirable 200-240 mg/dL Borderline >240 mg/dL High Risk Performed By: #### L 501.9910, L500.4050, L500.4100 ####[facility] [address] [place], [address] Cholesterol in HDL [Mass/Vol] 33 mg/dL Low [facility] Comment on above: Order Comment: Order Date: 01/12/23Order Info: [id number] - CMPOrder Info: - LIPIDOrder Info: [id number] - PSA Result Comment: The drugs N-Acetylcysteine and Metamizole may falsely depress this assay. Reference Range HDL <40 mg/dL Low HDL Cholesterol HDL >or= 60 mg/dL High HDL Cholesterol Performed By: #### L 501.9910, L500.4050, L500.4100 ####[facility] [address] [place], [address] Cholesterol in LDL [Mass/Vol] 93 mg/dL Normal 0-130 [facility] Comment on above: Order Comment: Order Date: 01/12/23Order Info: [id number] - CMPOrder Info: - LIPIDOrder Info: [id number] - PSA Performed By: #### L 501.9910, L500.4050, L500.4100 ####[facility] [address] [place], [address] Cholesterol in VLDL [Mass/Vol] 47 mg/dL High 5-40 [facility] Comment on above: Order Comment: Order Date: 01/12/23Order Info: [id number] - CMPOrder Info: [id number] - LIPIDOrder Info: [id number] - PSA Performed By: #### L 501.9910, L500.4050, L500.4100 ####[facility] [address] [place], [place], [address] Triglyceride [Mass/Vol] 235 mg/dL High [facility] Comment on above: Order Comment: Order Date: 01/12/23Order Info: [id number] - CMPOrder Info: [id number] - LIPIDOrder Info: [id number] - PSA Result Comment: The drugs N-Acetylcysteine and Metamizole may falsely depress this assay. Serum Triglycerides Reference Interval Normal <150 mg/dL Borderline high 150 - 199 mg/dL High 200 - 499 mg/dL Very High > or = 500 mg/dL Performed By: #### L 501.9910, L500.4050, L500.4100 ####[facility] [address] [place], [address] No Panel InformationOrdered By: Georges Lindsay on 07-13-2023 Addendum Document Comment . [facility] Comment on above: The SPE pattern demo nstrates elevation of regionscontaining acute phase proteins suggesting anacute/subacute inflammatory response. Some conditions inwhich this pattern has been observed include: bacterial,viral or parasitic infection; mechanical, physical orchemical trauma; and cardiac failure. The gamma globulinregion is unremarkable and evidence of monoclonal proteinis not apparent.Performed at: - [address] [id number] Director: Nilay Aguila PhD, Phone: [phone] Kdrua-5-Uepijskmv 0.3 g/dL 0.0-0.4 [facility] Bfxjf-1-Rqkiwiowp 1.1 g/dL 0.4-1.0 [facility] Estimated GFR (MDRD) Amer 52 mL/min >60 [facility] Comment on above: GFR Calc Estimated GFR (MDRD) Non-Af Amer 43 mL/min >60 [facility] Comment on above: Non- GFR Calc Gamma Globulins 1.3 g/dL 0.4-1.8 [facility] Prostate Specific Antigen Screen 0.78 ng/mL 0.00-4.00 [facility] Comment on above: This test was perfor med using the TPSA assay method for theSWYF chemistry system. Values obtained with differentassay methods cannot be used interchangably.When changing PSA assays in the course of monitoring apatient, additional sequential testing should be carriedout to confirm baseline values. PSA,Total - Annual Screenon 07-13-2023 PSA,TOT SCREEN 0.78 ng/mL Normal 0.00-4.00 [facility] Comment on above: Order Comment: Order Date: 01/12/23Order Info: [id number] - CMPOrder Info: [id number] - LIPIDOrder Info: [id number] - PSA Result Comment: This test was performed using the TPSA assay method for the SWYF chemistry system. Values obtained with different assay methods cannot be used interchangably. When changing PSA assays in the course of monitoring a patient, additional sequential testing should be carried out to confirm baseline values. Performed By: #### L 501.9910, L500.4050, L500.4100 ####[facility] [address] [place], [address] Protein Fractions Elph [Inte rp]Ordered By: Georges Lindsay on 07-13-2023 Protein Fractions [Interp] Comment . [facility] Comment on above: Protein electrophore sis scan will follow via computer,mail, or verification clerk delivery. Serum albumin to globulin ra josué by protein electrophoresisOrdered By: Georges Lindsay on 07-13-2023 Albumin/Globulin Elph [Mass ratio] 0.9 0.7-1.7 [facility] Serum globulin measurement ( mass/volume)Ordered By: Georges Lindsay on 07-13-2023 Globulin (S) [Mass/Vol] 3.9 g/dL 2.2-3.9 [facility] Serum or plasma albumin brittany urement (mass/volume)Ordered By: Georges Lindsay on 07-13-2023 Albumin [Mass/Vol] 3.6 g/dL 3.2-5.0 [facility] Serum or plasma albumin/glob ulin mass ratioOrdered By: Georges Lindsay on 07-13-2023 Albumin/Globulin [Mass ratio] 0.8 {ratio} 0.9-2.4 [facility] Serum or plasma beta globuli n measurement by electrophoresis (mass/volume)Ordered By: Georges Lindsay on 07-13-2023 Beta globulin Elph [Mass/Vol] 1.2 g/dL 0.7-1.3 [facility] Serum or plasma calcium brittany urement (mass/volume)Ordered By: Georges Lindsay on 07-13-2023 Calcium [Mass/Vol] 9.1 mg/dL 8.5-10.1 [facility] Serum or plasma cholesterol in HDL measurement (mass/volume)Ordered By: Georges Lindsay on 07-13-2023 Cholesterol in HDL [Mass/Vol] 33 mg/dL >40 [facility] Comment on above: The drugs N-Acetylcy steine and Metamizole may falsely depress this assay. Reference Range HDL <40 mg/dL Low HDL Cholesterol HDL >or= 60 mg/dL High HDL Cholesterol Serum or plasma cholesterol in VLDL measurement (mass/volume)Ordered By: Georges Lindsay on 07-13-2023 Cholesterol in VLDL [Mass/Vol] 47 mg/dL 5-40 [facility] Serum or plasma creatinine m easurement (mass/volume)Ordered By: Georges Lindsay on 07-13-2023 Creatinine [Mass/Vol] 1.75 mg/dL 0.70-1.30 [facility] Comment on above: The validity of the calculated GFR & GFRAA in patients over 70 years has not been determined. Clinical correlation is essential. Serum or plasma low density lipoprotein (LDL) cholesterol measurement (mass/volume)Ordered By: Georges Lindsay on 07-13-2023 Cholesterol in LDL [Mass/Vol] 93 mg/dL 0-130 [facility] Serum or plasma urea nitroge n measurement (mass/volume)Ordered By: Georges Lindsay on 07-13-2023 Urea nitrogen [Mass/Vol] 18 mg/dL 7-18 [facility] Thin prep Papanicolaou smear with manual screeningOrdered By: Georges Lindsay on 07-13-2023 Thin prep Papanicolaou smear with manual screening 25 U/L 15-37 [facility] Comment on above: Slight Hemolysis, Re sult may be falsely increased. Thin prep Papanicolaou smear with manual screening 8 5-15 [facility] Thin prep Papanicolaou smear with manual screening See comment [facility] Comment on above: Result: Not Observed Total protein bloodOrdered B y: Georges Lindsay on 07-13-2023 Protein [Mass/Vol] 7.3 g/dL 6.0-8.5 [facility] Abdomen Single Viewon 2022 Abdomen Single View [facility] Imaging Services [address] [place] [address] Abdomen Single View MR#: [id number] Acct: [id number] Name: MEGAN MOSS Rep #: [id number] : 1965 M 58 From: Valdemar Ritchie MD PCP: Dr. Georges Lindsay MD Status: REG CLI Study: Abdomen Single View Date of Exam: 07/09/23 Exam# [id number] Ordering Dr: Armando Olivarez MD [id number] EXAM: XR ABDOMEN, 1 VIEW CLINICAL INDICATION: KIDNEY STONES TECHNIQUE: Frontal supine view of the abdomen/pelvis. COMPARISON: No relevant prior studies available. FINDINGS: LOWER THORAX: Lung bases are clear as imaged. GASTROINTESTINAL TRACT: Unremarkable. No bowel obstruction. ORGANS: Multiple small left renal calculi identified. No organomegaly. BONES/JOINTS: No suspicious lytic or sclerotic lesions of bone. SOFT TISSUES: No acute pathology. TUBES, LINES AND DEVICES: Left ureteral stent in place. RAD/Abdomen Single View IMPRESSION: Multiple small left renal calculi identified. These can be further characterized with CT. Electronically Signed: Valdemar Ritchie MD at 4:48 EDT , CC: Dr. Georges Lindsay MD; Dr. Armando Olivarez MD Handyperson: Signed Normal [facility] Discharge Instructionon 06-06 Discharge Instruction [facility] Medical Records Department [address] [place] [address] Instructions for Home/Discharge Instructions 07/03/23 1406 MR#: [id number] Acct: [id number] Name: MEGAN MOSS Rep #: [id number] : 1965 58 From: Armando Olivarez MD PCP: Dr. Georges Lindsay MD Status:REG [facility] [place] Discharge Instructions Diet Discharge Diet: No restrictions Activity Discharge Activity: Return to Normal Activity and May Not Drive (while taking narcotic pain medications.) Dressing / Incision Call your doctor if you observe: Fever of 101 or Higher Follow Up Care Please Follow Up With: Armando Olivarez MD When: Call [phone] for an appointment Test Results: Test results from this visit will be discussed in further detail at your follow-up appointment, if applicable. Discharge Plan Admission Primary Reason for Your Visit: Cystoscopy left stent placement left ESWL Attending Provider: Armando Olivarez Primary Care Provider: Georges Lindsay Discharge Orders/Prescriptions Prescriptions: New tamsulosin [Flomax] 0.4 mg capsule 0.4 mg PO DAILY Qty: 10 0RF ciprofloxacin HCl 500 mg tablet 500 mg PO BID Qty: 10 0RF phenazopyridine [Pyridium] 100 mg tablet 100 mg PO TID PRN (Reason: pain) Qty: 20 0RF oxycodone 5 mg tablet 5 mg PO Q6H PRN (Reason: pain) 7 Days Qty: 14 0RF Continued lisinopril 20 mg tablet 20 mg PO DAILY oxycodone-acetaminop hen [Percocet] 5-325 mg tablet 1 tab PO Q8H PRN (Reason: pain) 3 Days Qty: 12 0RF ondansetron 4 mg tablet,disintegratin g 4 mg PO Q8H PRN PRN (Reason: Nausea) Qty: 10 0RF Referrals / Follow Up: Georges Lindsay MD [Primary Care Provider] - Armando Olivarez MD [Med Staff - Active Staff] - Disposition Disposition (needs filled in before D/C Order can be placed): Home, Self Care 07/03/23 1406 Armando Olivarez MD CC: Dr. Georges Lindsay MD Signed Normal [facility] Operative Reporton 3 Operative Report [facility] Medical Records Department [address] [place] [id number] Operative Report 07/03/23 1406 MR#: [id number] Acct: [id number] Name: MEGAN MOSS Rep #: [id number] : 1965 58 From: Armando Olivarez MD PCP: Dr. Georges Lindsay MD Status:[facility] Location: [place] [address] Report of Operation Date of Procedure: 07/03/23 Pre-Operative Diagnosis: Left renal calculi Post-Operative Diagnosis: Same Surgery/Procedure Performed:: Cystoscopy left stent placement left extracorporeal shockwave lithotripsy Description of Surgical Findings:: Patient presents to the hospital for treatment of a kidney stone with shockwave lithotripsy. In the preoperative area and x-ray was done to confirm the location of the stone. The x-ray was reviewed and the stone location was reviewed. In the preoperative setting I spoke with the patient regarding the treatment of the stone how the treatment would be conducted and the expectations after surgery. The patient understands there is a risk of bleeding and infection. Also discussed the very rare risk of hematoma or damage to the kidney. We also discussed the risk that the shockwave machine will fail to break the stone adequately and that the patient may need other surgical procedures. We also discussed the possibility that the patient may need a stent after the procedure. After reviewing the procedure with the patient, the patient is signed the consent form all the patient's questions were addressed and was taken back to the operating room for treatment of a kidney stone. Patient was taken back to the operating room, patient was identified by the nursing staff, we identified the side of the treatment and the patient side of treatment had been marked by my initi als. The patient underwent general anesthetic and was placed supine on the lithotripter table. We then used fluoroscopy to identify the stone on the Left side. The urethra and genitals were prepped and draped in usual sterile fashion. Using a 21 Bahraini rigid cystourethroscope the entire length of the urethra was normal then went into the bladder. Identified the trigone the left and right ureteral orifice. I then cannulated the Left orifice and advanced a wire up into the kidney. I then backloaded a 5 Bahraini open ended catheter over the wire and injected contrast to delineate the anatomy. After the retrograde was performed I then used fluoroscopic images and guidance to advanced a wire up into the kidney and over the 0.038 glidewire I advanced a 6 Bahraini by 26 cm double pigtail stent. I then pulled the 0.038 Glidewire off and the stent coiled in the kidney bladder good position. The bladder was then drained. We confirmed the position of the stent by fluoroscopy. We then positioned the patient under the lithotripter and we used triangulation technique to identify the location of the stone and then we made sure that the stone was engaged in the F2 focal point of F2 Donier lithoprior machine. Once the patient was positioned appropriately and the stone was identified and placed in the F2 focal point of the lithotripter machine we then proceeded with shockwave lithotripsy. In the beginning the shockwave was delivered at a rate of 90 shocks per minute, we monitor the EKG for any ectopy. The power was slowly increased to 5 kV and subsequently at the 7 kV. We then proceeded with the treatment we move the therapy had around during the treatment to make sure the stone stayed in the F2 focal point during the entire treatment and after 3000 shockwaves were delivered to the stone under fluoroscopic guidance the treatment was completed. The patient was given instructions to call the office to make an a follow-up appointment with an xray to evaluate the success of the treatment, pateint understands that its possible the stones may need another procedure.At this point the patient's anesthetic was reversed patient was extubated and taken back to the PACU in stable condition. Surgeon: Armando Olivarez Type of Anesthesia: General Drains: left stent Admit VTE Documentation VTE Present on Admission: No VTE Mechan Device Prophylaxis: SCD's VTE Pharm Prophylaxis ordered?: No 07/03/23 1050 Cosigner Signature (if applicable): CC: Dr. Georges Lindsay MD; Dr. Armando Olivarez MD Signed Normal [facility] CBC W/Diff, Automatedon 06-06 PATH REV Reviewed Normal [facility] Comment on above: Result Comment: Neut rophilic leukocytosis. Clinical correlation necessary. Jace Can M.D. 06/30/23 AMENDED REPORT 06/30/23 0852 PATH REV previously reported as: February Performed By: #### L 100.0100 ####[facility] [address] [place], [address] Abdomen/Pelvis W IV Cont ONL [facility] 06-27-2023 Abdomen/Pelvis W IV Cont ONLY [facility] Imaging Services [address] [place] [address] Abdomen/Pelvis W IV Cont ONLY MR#: [id number] Acct: [id number] Name: MEGAN MOSS Rep #: [id number] : 1965 M 58 From: Florentino Love MD PCP: Dr. Georges Lindsay MD Status: REG ER Study: Abdomen/Pelvis W IV Cont ONLY Date of Exam: Exam# [id number] Ordering Dr: Mundo Cadet ANIMAL ASSISTED THERAPIST-C [id number] STUDY: CT ABDOMEN AND PELVIS WITH CONTRAST REASON FOR EXAM: Male, 58 years old. LLQ abdominal pain RADIATION DOSAGE (If Supplied By Facility): CTDIvol = ( 24.55 ) mGy, DLP = ( 1377.47 ) mGycm TECHNIQUE: Transaxial images were obtained from the dome of the diaphragm to the symphysis pubis without oral contrast. IV 100mL Isovue-370 was administered. Sagittal and coronal images were reconstructed. Individualized dose optimization techniques were used for this CT. COMPARISON: None. FINDINGS: The visualized lung bases are unremarkable. The visualized portions of the heart are within normal limits. Normal liver. Normal gallbladder and extrahepatic biliary system. Normal spleen. Normal pancreas. Normal bilateral adrenal glands. Bilateral nonobstructing renal stones. 5 mm obstructing stone in the mid left ureter. 10 mm obstructing stone at the left ureteropelvic junction with mild hydronephrosis and perinephric edema. Normal visualized stomach. Normal small intestine. Normal colon. The appendix is visualized and appears normal. Normal abdominal aorta. Normal inferior vena cava. Normal retroperitoneum. Normal urinary bladder. Normal abdominal wall. Bilateral pars defects the L5 vertebra consistent with L5 spondylolysis. 2 mm of anterolisthesis of L5 on S1 consistent with grade [address]/Abdomen/Pelvis W IV Cont ONLY IMPRESSION: 10 mm obstructing stone at the left ureteropelvic junction with mild hydronephrosis and perinephric edema. Another 5 mm obstructing stone of the mid left ureter. Electronically Signed: Florentino Love MD at 17:29 EDT , CC: ASHLYN Cadet; Dr. Georges Lindsay MD Handyperson: Signed Normal [facility] Absolute lymphocyte countOrd ered By: Mundo Cadet on 06-27-2023 Lymphocytes Auto (Unsp spec) [#/Vol] 1.37 10*3/uL 0.83-4.51 [facility] Basic Metabolic Profile (BMP )on 06-27-2023 BUN/CRE 9.9 RATIO Low 10-20 [facility] Comment on above: Performed By: #### L 100.0100, L500.2500 ####[facility] [address] [place], [address] CA,Total 9.5 mg/dL Normal 8.5-10.1 [facility] Comment on above: Performed By: #### L 100.0100, L500.2500 ####[facility] [address] [place], [address] ECRCL 52.85 ml/min Normal [facility] Comment on above: Performed By: #### L 100.0100, L500.2500 ####[facility] [address] [place], [address] EST GFR - AA 62 mL/min Normal >60 [facility] Comment on above: Result Comment: Afri can Bhutanese GFR Calc Performed By: #### L 100.0100, L500.2500 ####[facility] [address] [place], [address] GAP 7 Normal 5-15 [facility] Comment on above: Performed By: #### L 100.0100, L500.2500 ####[facility] [address] [place], [address] GFR/1.73 sq M.predicted among non-blacks MDRD (S/P/Bld) [Vol rate/Area] 51 mL/min/{1.73_m2} Low >60 [facility] Comment on above: Result Comment: Non- GFR Calc Performed By: #### L 100.0100, L500.2500 ####[facility] [address] [place], [address] Basic Metabolic Profile (BMP )Ordered By: Mundo Cadet on 06-27-2023 CO2 [Moles/Vol] 25.0 mmol/L Normal 21.0-32.0 [facility] Comment on above: Performed By: #### L 100.0100, L500.2500 ####[facility] [address] [place], [address] Basophil percentageOrdered B y: Jose Tripp on 06-27-2023 Basophil percentage 0-5 SEEN /hpf 0-5 [facility] Basophil percentageOrdered B y: Mundo Cadet on 06-27-2023 Basophils/100 WBC (Bld) 0.2 % 0-1 [facility] Chloride [Moles/Vol] 102 mmol/L Normal 98-107 [facility] Comment on above: Performed By: #### L 100.0100, L500.2500 ####[facility] [address] [place], [address] Eosinophils/100 WBC (Bld) 1.6 % 0-5 [facility] Glucose [Mass/Vol] 119 mg/dL High 74-106 [facility] Comment on above: Fasting Glucose resu lt from 100 to 125 mg/dL suggests IMPAIRED HOMEOSTASIS per A.D.A. criteria. Result Comment: Fast ing Glucose result from 100 to 125 mg/dL suggests IMPAIRED HOMEOSTASIS per A.D.A. criteria. Performed By: #### L 100.0100, L500.2500 ####[facility] [address] [place], [address] Neutrophils (Bld) [#/Vol] 10.2 10*3/uL 2.0-7.7 [facility] Neutrophils/100 WBC (Bld) 75.7 % 47-70 [facility] Potassium [Moles/Vol] 3.8 mmol/L Normal 3.5-5.1 [facility] Comment on above: Performed By: #### L 100.0100, L500.2500 ####[facility] [address] [place], [address] Sodium [Moles/Vol] 134 mmol/L Low 136-145 [facility] Comment on above: Performed By: #### L 100.0100, L500.2500 ####[facility] [address] [place], [address] WBC (Bld) [#/Vol] 13.5 10*3/uL 4.4-11.0 [facility] Bilirubin Test strip Ql (U)O rdered By: Jose Tripp on 06-27-2023 Bilirubin Ql (U) Negative Negative [facility] Blood erythrocytes count (nu mber/volume)Ordered By: Mundo Cadet on 06-27-2023 RBC (Bld) [#/Vol] 5.49 10*6/uL 4.6-6.2 [facility] Blood hemoglobin measurement (mass/volume)Ordered By: Mundo Cadet on 06-27-2023 Hemoglobin (Bld) [Mass/Vol] 16.5 g/dL 13.0-16.5 [facility] Blood lymphocytes/100 leukoc ytesOrdered By: Mundo Cadet on 06-27-2023 Lymphocytes/100 WBC (Bld) 10.2 % 19-41 [facility] Blood manual differential co mment interpretation (narrative result)Ordered By: Mundo aCdet on 06-27-2023 Manual differential comment Foreign (Bld) [Interp] SEE COMMENT [facility] Comment on above: MONOCYTOSIS NOTED Blood monocytes/100 leukocyt esOrdered By: uMndo Cadet on 06-27-2023 Monocytes/100 WBC (Bld) 11.9 % 0-10 [facility] Blood platelet adequacy dete ction by light microscopyOrdered By: Mundo Cadet on 06-27-2023 Platelets LM Ql (Bld) ADEQUATE ADEQ [facility] Blood platelet mean volumeOr dered By: Mundo Cadet on 06-27-2023 Platelet mean volume (Bld) [Entitic vol] 10.7 fL 6.2-12.0 [facility] CBC W/Diff, Automatedon 06-06 Absolute Neut Normal 2.0-7.7 [facility] Comment on above: Result Comment: Canc elled via OM: MD Ordered Performed By: #### L 100.0100, L500.2500 ####[facility] [address] [place], [address] HCT Normal 40-54 [facility] Comment on above: Result Comment: Canc elled via OM: MD Ordered Performed By: #### L 100.0100, L500.2500 ####[facility] [address] [place], [address] HGB Normal 13.0-16.5 [facility] Comment on above: Result Comment: Canc elled via OM: MD Ordered Performed By: #### L 100.0100, L500.2500 ####[facility] [address] [place], [address] MCH Normal 27.0-32.0 [facility] Comment on above: Result Comment: Canc elled via OM: MD Ordered Performed By: #### L 100.0100, L500.2500 ####[facility] [address] [place], [address] MCHC Normal 32-36 [facility] Comment on above: Result Comment: Canc elled via OM: MD Ordered Performed By: #### L 100.0100, L500.2500 ####[facility] [address] [place], [address] MCV Normal 80-94 [facility] Comment on above: Result Comment: Canc elled via OM: MD Ordered Performed By: #### L 100.0100, L500.2500 ####[facility] [address] [place], [address] NEUT% Normal 47-70 [facility] Comment on above: Result Comment: Canc elled via OM: MD Ordered Performed By: #### L 100.0100, L500.2500 ####[facility] [address] [place], [address] PLT Normal 150-450 [facility] Comment on above: Result Comment: Canc elled via OM: MD Ordered Performed By: #### L 100.0100, L500.2500 ####[facility] [address] [place], [address] RBC Normal 4.6-6.2 [facility] Comment on above: Result Comment: Canc elled via OM: MD Ordered Performed By: #### L 100.0100, L500.2500 ####[facility] [address] [place], [address] RDW CV Normal 11.6-14.6 [facility] Comment on above: Result Comment: Canc elled via OM: MD Ordered Performed By: #### L 100.0100, L500.2500 ####[facility] [address] [place], [address] RDW SD Normal 35.1-43.9 [facility] Comment on above: Result Comment: Canc elled via OM: MD Ordered Performed By: #### L 100.0100, L500.2500 ####[facility] [address] [place], [address] WBC Normal 4.4-11.0 [facility] Comment on above: Result Comment: Erick delacruz via OM: Ordered Performed By: #### L 100.0100, L500.2500 ####[facility] [address] [place], [address] Determination of erythrocyte mean corpuscular volume (MCV)Ordered By: Mundo Cadet on 06-27-2023 MCV (RBC) [Entitic vol] 85.8 fL 80-94 [facility] Emergency Department Summary on 06-27-2023 Emergency Department Summary [facility] Medical Records Department [address] [place] [address] Emergency Department Summary 06/27/23 MR#: [id number] Acct: [id number] Name: MEGAN MOSS Rep #: [id number] : 1965 58 From: Jose Tripp MD PCP: Dr. Georges Lindsay MD Status:DEP ER Location: ED HPI History of Present Illness Chief Complaint: Abd Pain Narrative Narrative: Patient is a 58-year-old male with history of obesity, hypertension who takes lisinopril presents to the emergency department with 2.5 days of left lower quadrant abdominal pain. Patient denies any radiation from his back to his front. He states is right there. Started at roughly 1 PM, he he describes it as gnawing however states it does have periods of sharpness. Today, patient had pain and then had 2 episodes of vomitus. He denies history of kidney stones, denies history of any diverticulitis. Patient denies any blood in stool or vomit. Denies any fever or chills. PFSH PFSH Home Medications lisinopril 20 mg tablet 20 mg PO DAILY 06/27/23 [History Last Taken Unknown] ondansetron 4 mg disintegrating tablet 4 mg PO Q8H PRN PRN Nausea #10 tabs 06/27/23 [Rx Last Taken Unknown] oxycodone-acetaminop hen 5 mg-325 mg tablet (Percocet) 1 tab PO Q8H PRN pain 3 days #12 tabs 06/27/23 [Rx Last Taken Unknown] Allergy/AdvReac Type Severity Reaction Status Date / Time No Known Allergies Allergy Verified 06/27/23 14:32 Social History (Updated 11/16/19 @ 17:45 by Jason HERNÁNDEZ, PA) Smoking Status: Never smoker alcohol intake: never ROS ROS ED ROS Narrative Constitutional: Negative for fever, chills, weight loss, weakness Eyes: Negative for vision loss, vision change, double vision ENT: Negative for any sore throat, ear pain, congestion Cardiovascular: Negative for any chest pain, tightness, palpitations Respiratory: Negative for any cough, sputum production, hemoptysis, dyspnea, dyspnea on exertion, orthopnea Gastrointestinal: Negative for any diarrhea, constipation, blood in stool, blood in vomit. Positive for abdominal pain, nausea and vomiting : Negative for any urinary frequency, dysuria, retention, blood in urine Muscle skeletal: Negative for any muscle joint pain, stiffness, myalgias, arthralgias, neck pain, back pain Neurological: Negative for any headache, syncope, numbness or tingling, dizziness Skin: Negative for any rashes, lumps, itching, abrasions, lacerations Psychiatric: Negative for any depression, anxiety, stress, suicidal ideation, homicidal ideation Hematologic: Negative for any easy bruising, excessive bruising, easy bleeding Allergies: Negative for any eczema, hives, rash EXAM Physical Exam Narrative Exam Narrative: Vital signs reviewed. HEET: Head normocephalic atraumatic, TMs clear bilaterally. Posterior pharynx is clear, moist mucous membranes. Nares clear bilaterally. Neck: Supple with no lymphadenopathy or tenderness. No signs of meningismus, negative jolt sign. Cardiac: Regular rate and rhythm no murmurs gallops or rubs, equal peripheral pulses bilaterally. Respiratory: Lungs clear to auscultation bilaterally. No chest tenderness. Abdomen: Soft, nondistended. No abdominal bruit or pulsatile masses. No hepatosplenomegaly. Pain to the left lower quadrant Extremities: No peripheral edema, no signs of gross trauma or deformity. Active full range of motion of all extremities. Neuro: Cranial nerves II through XII intact, no focal neurological deficits. Skin: Clean dry and intact with no rash, purpura, petechiae, vesicles or pustules. Backs/flank: No CVA tenderness, no midline spinal tenderness, no deformity. Psych: Normal mood and affect. No SI, HI or acute psychosis. Const Vital Signs: 06/27/23 14:32 06/27/23 18:47 Temperature 98.5 F Temperature Source Temporal Pulse Rate 95 70 Respiratory Rate 16 18 Blood Pressure 147/98 H 166/103 H Blood Pressure Mean 114 124 Pulse Ox 94 97 Oxygen Delivery Method Room Air Room Air Physical Exam Const Vital Signs: 06/27/23 14:32 06/27/23 18:47 Temperature 98.5 F Temperature Source Temporal Pulse Rate 95 70 Respiratory Rate 16 18 Blood Pressure 147/98 H 166/103 H Blood Pressure Mean 114 124 Pulse Ox 94 97 Oxygen Delivery Method Room Air Room Air MDM MDM Lab Data Labs: Laboratory Results - last 24 hr 06/27/23 06/27/23 15:45 17:30 WBC 13.5 H RBC 5.49 Hgb 16.5 Hct 47.1 MCV 85.8 MCH 30.1 MCHC 35.0 RDW Std Deviation 42.9 RDW Coeff of Tristian 13.7 Plt Count 227 MPV 10.7 Immature Gran % (Auto) 0.400 Neut % (Auto) 75.7 H Lymph % (Auto) 10.2 L [place] % (Auto) 11.9 H Eos % (Auto) 1.6 Baso % (Auto) 0.2 Absolute Neuts (auto) 10.2 H Absolute Lymphs (auto) 1.37 Nucleated RBC % (more content not included)... Normal [facility] Hematocrit Auto (Bld) [Volum e fraction]Ordered By: Mundo Cadet on 06-27-2023 Hematocrit (Bld) [Volume fraction] 47.1 % 40-54 [facility] Ketones Test strip Ql (U)Ord ered By: Jose Tripp on 06-27-2023 Ketones Ql (U) 5 mg/dl Negative [facility] Laboratory - Chemistry and C hemistry - challengeOrdered By: Mundo Cadet on 06-27-2023 Urea nitrogen/Creatinine [Mass ratio] 9.9 mg/mg 10-20 [facility] Laboratory - Hematology and Cell countsOrdered By: Mundo Cadet on 06-27-2023 Anisocytosis Ql (Bld) RARE [facility] Erythrocyte distribution width (RBC) [Entitic vol] 42.9 fL 35.1-43.9 [facility] Erythrocyte distribution width (RBC) [Ratio] 13.7 % 11.6-14.6 [facility] Immature granulocytes/100 WBC (Bld) 0.400 % 0.0-0.9 [facility] Comment on above: IG% - Immature Granu locytes (promyelocytes, myelocytes and metamyelocytes) > 1% indicates that a LEFT SHIFT is Present. MCH (RBC) [Entitic mass] 30.1 pg 27.0-32.0 [facility] Nucleated RBC/100 WBC (Bld) [Ratio] 0 % 0-5 [facility] MCHC Auto (RBC) [Mass/Vol]Or dered By: Mundo Cadet on 06-27-2023 MCHC (RBC) [Mass/Vol] 35.0 g/dL 32-36 [facility] Mucus LM Ql (Urine sed)Order ed By: Jose Tripp on 06-27-2023 Mucus Ql (Urine sed) 0 SEEN /hpf [facility] Nitrite Test strip Ql (U)Ord ered By: Jose Tripp on 06-27-2023 Nitrite Ql (U) Negative Negative [facility] No Panel InformationOrdered By: Mundo Cadet on 06-27-2023 Estimated Creatinine Clearance Calc 52.85 ml/min [facility] Estimated GFR (MDRD) Amer 62 mL/min >60 [facility] Comment on above: GFR Calc Estimated GFR (MDRD) Non-Af Amer 51 mL/min >60 [facility] Comment on above: Non- GFR Calc Platelets bldOrdered By: Shelia Cadet on 06-27-2023 Platelets (Bld) [#/Vol] 227 10*3/uL 150-450 [facility] Protein Test strip Ql (U)Ord ered By: Jose Tripp on 06-27-2023 Protein Ql (U) Negative Negative [facility] RBC morphologyOrdered By: Qamar Cadet on 06-27-2023 RBC morphology finding Nom (Bld) NORM C+C NORMAL NORM C&C [facility] Review by pathologistOrdered By: Mundo Cadet on 06-27-2023 Pathologist review Foreign (Unsp spec) [Interp] Zhanna gross [facility] Pathologist review Foreign (Unsp spec) [Interp] Reviewed [facility] Comment on above: Previous reported re sult: Zhanna gross Edited by: RGOROBERT on 06/30/23:0852Neutrophilic leukocytosis.Clinical correlation necessary.Jace Can M.D. 06/30/23 AMENDED REPORT 06/30/23 0852 PATH REV previously reported as: February Serum or plasma calcium brittany urement (mass/volume)Ordered By: Mundo Cadet on 06-27-2023 Calcium [Mass/Vol] 9.5 mg/dL 8.5-10.1 [facility] Serum or plasma creatinine m easurement (mass/volume)Ordered By: Mundo Cadet on 06-27-2023 Creatinine [Mass/Vol] 1.51 mg/dL High 0.70-1.30 [facility] Comment on above: The validity of the calculated GFR & GFRAA in patients over 70 years has not been determined. Clinical correlation is essential. Result Comment: The validity of the calculated GFR GFRAA in patients over 70 years has not been determined. Clinical correlation is essential. Performed By: #### L 100.0100, L500.2500 ####[facility] [address] [place], [place], [id number] Serum or plasma urea nitroge n measurement (mass/volume)Ordered By: Mundo Cadet on 06-27-2023 Urea nitrogen [Mass/Vol] 15 mg/dL Normal 7-18 [facility] Comment on above: Performed By: #### L 100.0100, L500.2500 ####[facility] [address] [place], [place], [address] Squamous epithelial cells de tection in urine sediment by light microscopyOrdered By: Jose Tripp on 06-27-2023 Epithelial cells.squamous LM Ql (Urine sed) 0 SEEN /hpf 0-5 [facility] Thin prep Papanicolaou smear with manual screeningOrdered By: Mundo Cadet on 06-27-2023 Thin prep Papanicolaou smear with manual screening 7 5-15 [facility] Urinalysis, Completeon 06-27 RBC 0-5 SEEN Normal 0-5 [facility] Comment on above: Order Comment: COLLE CTOR TO SPECIFY Performed By: #### L 400.0001 ####[facility] [address] [place], [address] WBC 0-5 SEEN Normal 0-5 [facility] Comment on above: Order Comment: CANDE CTOR TO SPECIFY Performed By: #### L 400.0001 ####[facility] [address] [place], [address] BACTERIA 0 SEEN Normal None Seen [facility] Comment on above: Order Comment: CANDE CTOR TO SPECIFY Performed By: #### L 400.0001 ####[facility] [address] [place], [address] EPI,SQUAMOUS 0 SEEN Normal 0-5 [facility] Comment on above: Order Comment: CANDE CTOR TO SPECIFY Performed By: #### L 400.0001 ####[facility] [address] [place], [address] Mucus Ql (Urine sed) 0 SEEN Normal [facility] Comment on above: Order Comment: CANDE CTOR TO SPECIFY Performed By: #### L 400.0001 ####[facility] [address] [place], [address] Urine blood detectionOrdered By: Jose Tripp on 06-27-2023 RBC Ql (U) 150 /ul Negative [facility] RBC Ql (U) 0-5 SEEN /hpf 0-5 [facility] Urine clarityOrdered By: Jay Tripp on 06-27-2023 Clarity (U) Clear Clear [facility] Urine color determinationOrd ered By: Jose Tripp on 06-27-2023 Color (U) Yellow Yellow [facility] Urine glucose detectionOrder ed By: Jose Tripp on 06-27-2023 Glucose Ql (U) Normal mg/dl Normal [facility] Urine leukocyte esterase det ection by dipstickOrdered By: Jose Tripp on 06-27-2023 Leukocyte esterase Test strip Ql (U) Negative Negative [facility] Urine pHOrdered By: Jose Rojo ghcarlita on 06-27-2023 pH (U) 6.0 [pH] 5.0 - 8.0 [facility] Urine sediment bacteria coun t by microscopy (number/high power field)Ordered By: Jose Tripp on 06-27-2023 Bacteria LM.HPF (Urine sed) [#/Area] 0 /[HPF] None Seen [facility] Urine specific gravity measu rementOrdered By: Jose Tripp on 06-27-2023 Specific gravity (U) [Rel density] 1.010 1.002-1.030 [facility] Urobilinogen Auto test strip Ql (U)Ordered By: Jose Tripp on 06-27-2023 Urobilinogen Ql (U) Normal mg/dl Normal [facility] Basophil percentageon 2021 Bilirubin [Mass/Vol] 0.70 mg/dL 0.20-1.00 [facility] Work Phone: Comment on above: For patients on eltr ombopag therapy, use of Dimension [place] TBIL is not recommended. Chloride [Moles/Vol] 101 mmol/L 98-107 [facility] Work Phone: Cholesterol [Mass/Vol] 202 mg/dL <200 [facility] Work Phone: Comment on above: <200 mg/dL Desirable 200-240 mg/dL Borderline >240 mg/dL High Risk Glucose [Mass/Vol] 99 mg/dL 74-106 [facility] Work Phone: Potassium [Moles/Vol] 4.4 mmol/L 3.5-5.1 [facility] Work Phone: Comment on above: Slight Hemolysis, Re sult may be falsely increased. Protein [Mass/Vol] 8.2 g/dL 6.4-8.2 [facility] Work Phone: Sodium [Moles/Vol] 137 mmol/L 136-145 [facility] Work Phone: [phone] Triglyceride [Mass/Vol] 257 mg/dL <199 [facility] Work Phone: Comment on above: The drugs N-Acetylcy steine and Metamizole may falsely depress this assay.Serum Triglycerides Reference Interval Normal <150 mg/dL Borderline high 150 - 199 mg/dL High 200 - 499 mg/dL Very High > or = 500 mg/dL Laboratory - Chemistry and C hemistry - challengeon 07-10-2022 ALP [Catalytic activity/Vol] 64 U/L 45-117 [facility] Work Phone: ALT [Catalytic activity/Vol] 80 U/L 16-61 [facility] Work Phone: [phone] CO2 [Moles/Vol] 29.0 mmol/L 21.0-32.0 [facility] Work Phone: [phone] Globulin (S) [Mass/Vol] 4.3 g/dL 2.2-4.2 [facility] Work Phone: [phone] Urea nitrogen/Creatinine [Mass ratio] 13.4 mg/mg 10-20 [facility] Work Phone: [phone] No Panel Informationon 07-10 Estimated GFR (MDRD) Amer 88 mL/min >60 [facility] Work Phone: Comment on above: GFR Calc Estimated GFR (MDRD) Non-Af Amer 72 mL/min >60 [facility] Work Phone: Comment on above: Non- GFR Calc Serum or plasma albumin brittany urement (mass/volume)on 07-10-2022 Albumin [Mass/Vol] 3.9 g/dL 3.2-5.0 [facility] Work Phone: [phone] Serum or plasma albumin/glob ulin mass ratioon 07-10-2022 Albumin/Globulin [Mass ratio] 0.9 {ratio} 0.9-2.4 [facility] Work Phone: [phone] Serum or plasma calcium brittany urement (mass/volume)on 07-10-2022 Calcium [Mass/Vol] 9.8 mg/dL 8.5-10.1 [facility] Work Phone: [phone] Serum or plasma cholesterol in HDL measurement (mass/volume)on 07-10-2022 Cholesterol in HDL [Mass/Vol] 37 mg/dL >40 [facility] Work Phone: [phone] Comment on above: The drugs N-Acetylcy steine and Metamizole may falsely depress this assay. Reference Range HDL <40 mg/dL Low HDL Cholesterol HDL >or= 60 mg/dL High HDL Cholesterol Serum or plasma cholesterol in VLDL measurement (mass/volume)on 07-10-2022 Cholesterol in VLDL [Mass/Vol] 51 mg/dL 5-40 [facility] Work Phone: Serum or plasma creatinine m easurement (mass/volume)on 07-10-2022 Creatinine [Mass/Vol] 1.12 mg/dL 0.70-1.30 [facility] Work Phone: Comment on above: The validity of the calculated GFR & GFRAA in patients over 70 years has not been determined. Clinical correlation is essential. Serum or plasma low density lipoprotein (LDL) cholesterol measurement (mass/volume)on 07-10-2022 Cholesterol in LDL [Mass/Vol] 114 mg/dL 0-130 [facility] Work Phone: Serum or plasma urea nitroge n measurement (mass/volume)on 07-10-2022 Urea nitrogen [Mass/Vol] 15 mg/dL 7-18 [facility] Work Phone: Thin prep Papanicolaou smear with manual screeningon 07-10-2022 Thin prep Papanicolaou smear with manual screening 45 U/L 15-37 [facility] Work Phone: Comment on above: Slight Hemolysis, Re sult may be falsely increased. Thin prep Papanicolaou smear with manual screening 7 5-15 [facility] Work Phone: Vital Signs Date Time Vital Sign Value Performing Clinician Faci lity 07-03-2023 16:53-0400 Body temperature 96.6 [degF] [facility] 07-03-2023 16:53-0400 Diastolic blood pressure 75 mm[Hg] [facility] 07-03-2023 16:53-0400 Heart rate 82 /min [facility] 07-03-2023 16:53-0400 Respiratory rate 16 /min [facility] 07-03-2023 16:53-0400 SaO2% (BldA) [Mass fraction] 97 % [facility] 07-03-2023 16:53-0400 Systolic blood pressure 115 mm[Hg] [facility] 07-03-2023 11:49-0400 Body height 172.72 cm [facility] 07-03-2023 11:49-0400 Body mass index (BMI) [Ratio] 46.2 kg/m2 [facility] 07-03-2023 11:49-0400 Body weight 137.9 kg [facility] 06-27-2023 18:47-0400 Diastolic blood pressure 103 mm[Hg] [facility] 06-27-2023 18:47-0400 Heart rate 70 /min [facility] 06-27-2023 18:47-0400 Respiratory rate 18 /min [facility] 06-27-2023 18:47-0400 SaO2% (BldA) [Mass fraction] 97 % [facility] 06-27-2023 18:47-0400 Systolic blood pressure 166 mm[Hg] [facility] 06-27-2023 14:32-0400 Body height 172.72 cm [facility] 06-27-2023 14:32-0400 Body mass index (BMI) [Ratio] 47.8 kg/m2 [facility] 06-27-2023 14:32-0400 Body temperature 98.5 [degF] [facility] 06-27-2023 14:32-0400 Body weight 142.65 kg [facility] Encounters Encounter Date Encounter Type Care Provider Facility Start: 12-08-2023 End: 12-08-2023 ambulatory Georges [facility] Work Phone: Start: 12-08-2023 End: 12-08-2023 Patient encounter procedure [facility] Start: 10-13-2023 End: 10-13-2023 ambulatory Georges [facility] Work Phone: Start: 10-13-2023 End: 10-13-2023 Patient encounter procedure [facility] Work Phone: Start: 07-13-2023 End: 07-13-2023 ambulatory [facility] Facility:[facility] Start: 07-13-2023 End: 07-13-2023 Patient encounter procedure [facility] Start: 07-09-2023 End: 07-09-2023 ambulatory [facility] Facility:[facility] Start: 07-09-2023 End: 07-09-2023 Patient encounter procedure [facility] Work Phone: Start: 07-03-2023 End: 07-03-2023 ambulatory Armando Olivarez Facility:[facility] Start: 07-03-2023 End: 07-03-2023 Admission to same day surgery center [facility] Start: 06-27-2023 End: 06-27-2023 Emergency department patient visit [facility] Facility:[facility] Start: 06-27-2023 End: 06-27-2023 Emergency department patient visit [facility] Work Phone: Start: 07-10-2022 End: 07-10-2022 ambulatory [facility] Work Phone: Start: 07-10-2022 End: 07-10-2022 Patient encounter procedure [facility] Procedures Date Procedure Procedure Detail Performing Clinician Start: 10-13-2023 Diagnostic radiograp hy of abdomen Start: 07-09-2023 Diagnostic radiograp hy of abdomen Start: 06-27-2023 Computed tomography of abdomen and pelvis with intravenous contrast Plan of Treatment Date Care Activity Detail Author Start: 10-13-2023 Procedure [facility] Start: 07-03-2023 Ambulation without limitation [facility] Start: 07-03-2023 Medication education [facility] Start: 07-03-2023 Patient discharge [facility] Start: 07-03-2023 Taking patient vital signs [facility] Start: 07-03-2023 [facility] Start: 07-03-2023 Anes lithotrp xtrcor p shock wave w/o water bath ANESTH KIDNEY STONE DESTRUCT [facility] Start: 09-29-2023 Cysto w/insert urete ral stent CYSTOSCOPY AND TREATMENT [facility] Start: 07-03-2023 Lithotripsy xtrcorp shock wave FRAGMENTING OF KIDNEY STONE [facility] Patient Education [facility] Work Phone: Patient referral [facility] Work Phone: Payers Date Payer Category Payer Private Health Insurance [id number] 2023 Private Health Insurance [id number] 2023 Self-pay [id number] Unknown [id number] 2.16.8 [id number] Unknown [id number] 2.16.8 [id number] Unknown [id number] 2.16.8 [id number] Unknown [id number] 2.16.8 [id number] Unknown [id number] 2.16.8 [id number] Unknown [id number] 2.16.8 [id number] Social History Date Type Detail Facility Tobacco smoking stat us NHIS Unknown if ever smoked [facility] Work Phone: Start: 1965 Sex Assigned At Male [facility] Start: 11-16-2019 End: 07-01-2023 Tobacco smoking status NHIS Unknown if ever smoked [facility] Medical Equipment Procedure Code Equipment Code Equipment Origin al Text Equipment Identifier Dates Lithotripsy, [id number] ([id number]) Polymeric uret eral stent ([id number] FDA Start: 07-03-2023 Goals Date Patient Goal Desired Activity /State Functional Status Date Assessment Result Facility 07-03-2023 Functional status Ambulates;Bathroom Priv ilege [facility] Work Phone: Mental Status Date Assessment Result Facility 07-03-2023 Cognitive function Voice/Name;Touch/[place] [facility] Work Phone: Clinical Note 07-03-2023 Note Date & Type Note Facility 07-03-2023 Note [facility] Medical Records Department [address] [place] [address] History Physical Exam 07/03/23 1323 MR#: [id number] Acct: [id number] Name: MEGAN MOSS Rep #: [id number] : [id number] From: Armando Olivarez MD PCP: Dr. Georges Lindsay MD Status:[facility] Location: [place] [address] History and Physical Date of Admission: 07/03/23 58 yo male with a 10mm stone in the left UPJ also a 5mm stone in the lower pole Right kidney. doing well, no more nausea and vomiting some pain still on narcotics ALLERGIES: None MEDICATIONS: Lisinopril Oxycodone-Acetaminophen Tylenol PAST SURGICAL HISTORY: None PAST MEDICAL HISTORY: Disorder of thyroid, unspecified Immunizations: None FAMILY HISTORY: None SOCIAL HISTORY: Marital Status: Preferred Language: Yi; Race: White Current Smoking Status: Patient has never smoked. Tobacco Use Assessment Completed: Used Tobacco in last 30 days? Smoking cessation counseling was provided. Does not use smokeless tobacco. Light Drinker. Does not use drugs. Drinks 4+ caffeinated drinks per day. Has not had a blood transfusion. REVIEW OF SYSTEMS: Constitutional: Patient reports chills. Patient denies fever, weight loss, and weight gain. Eyes: Patient denies blurry vision, cataracts, and glaucoma. Ears, Nose, Mouth, Throat: Patient denies hearing loss, sinus infections, and sleep apnea. Cardiovascular: Patient denies chest pains, swollen ankles, irregular heartbeat, and pacemaker/defib. Respiratory: Patient denies shortness of breath, wheezing, oxygen, and cpap machine. Gastrointestinal: Patient denies abdominal pain, diarrhea, constipation, nausea, and vomiting. Genitourinary: Patient denies frequent urination, urinary retention, get up at night to void, urinary incontinence, painful urination, blood in the urine, frequent uti's, history of stones, difficulty starting stream, weak stream/scanty, and bedwetting. Musculoskeletal: Patient denies sore muscles, back pain, and gout. Integumentary/Skin: Patient denies rash, chronic itching, and skin cancer. Neurological: Patient denies falling/unsteady, paralysis, and stroke/tia. Hematologic/Lymphatic: Patient denies abnormal bleeding, blood transfusion, swollen lymph nodes, deep venous thrombosis, and pulmonary embolism. VITAL SIGNS: 06/29/2023 09:45 AM Weight 310 lb / 140.61 kg Height 68 in / 172.72 cm BP 136/84 mmHg BMI 47.1 kg/m??? - BMI Counseling was provided. PHYSICAL EXAM: Constitutional: Well-nourished. No physical deformities. Normally developed. Good grooming. Neck: Neck symmetrical, not swollen. Normal tracheal position. Respiratory: No labored breathing, no use of accessory muscles. Cardiovascular: Normal temperature, normal extremity pulses, no swelling, no varicosities. Lymphatic: No enlargement of neck, axillae, groin. Skin: No paleness, no jaundice, no cyanosis. No lesion, no ulcer, no rash. Neurologic / Psychiatric: Oriented to time, oriented to place, oriented to person. No depression, no anxiety, no agitation. Gastrointestinal: No mass, no tenderness, no rigidity, non obese abdomen. Eyes: Normal conjunctivae. Normal eyelids. Ears, Nose, Mouth, and Throat: Left ear no scars, no lesions, no masses. Right ear no scars, no lesions, no masses. Nose no scars, no lesions, no masses. Normal hearing. Normal lips. Musculoskeletal: Normal gait and station of head and neck. Complexity of Data: Source Of History: Patient Records Review: Previous Doctor Records, Previous Patient Records Urine Test Review: Urinalysis PROCEDURES: None ASSESSMENT: ICD-10 Details 1 Calculus of kidney - N20.0 Left, Acute, Systemic Symptoms PLAN: Document Letter(s): Created for Patient: Clinical Summary Notes: plan for Left ESWL and stent add on this coming Thursday at [facility]. discussed 905 success rate and may need 2nd treatment. 07/03/23 1323 Cosigner Signature (if applicable): CC: Dr. Georges Lindsay MD; Dr. Armando Olivarez MD Signed [facility] Discharge instructions 06-27-2023 Note Date & Type Note Facility 06-27-2023 Hospital Discharg e instructions Additional Instructions You need to follow-up with urology office, call 8 AM Thursday morning. Return for worsening pain, fever chills, nausea or vomiting. [facility] Work Phone: Evaluation note Note Date & Type Note Facility Evaluation note No assessment information availa ble [facility] Work Phone: Chief Complaint and Reason for Visit Chief Complaint ABD PAIN Chief Complaint ABD PAIN ESWL,Cystocopy Insertion Stent Advance Directives No Advanced Directives Records Found Advance Directive Response Recorded Date/ Time Living Will No June 27, 2023 3:40pm Power of Parts Room Associate No June 3:40pm Advance Directive Response Recorded Date/ Time Living Will No July 01, 2023 7:50am Power of Parts Room Associate No June 7:50am Summary Purpose Family History No Family History Records Found Additional Source Comments Goals (unrecognized section and content) Goals may be documented in a n alternate sectionGoals may be documented in an alternate sectionGoals may be documented in an alternate sectionGoals may be documented in an alternate section Care Teams (unrecognized sec tion and content) Team Status: Active Member Role Status Dates Dr. Georges Lindsay MD Family Provider Active Dr. Georges Lindsay MD Primary Care Provider Activ e Team Status: Inactive Member Role Status Dates Dr. Georges Lindsay MD Primary Care Provider Activ e Dr. Jose Tripp MD Emergency Provider Active Team Status: Inactive Member Role Status Dates Dr. Georges Lindsay MD Primary Care Provider Activ e Dr. Jose Tripp MD Attending Provider, Emergency Pro vider Active Team Status: Inactive Member Role Status Dates Dr. Georges Lindsay MD Primary Care Provider, Atte nding Provider Active Team Status: Inactive Member Role Status Dates Dr. Georges Lindsay MD Primary Care Provider Activ e Dr. Armando Olivarez MD Attending Provider, Referr ing Provider Active (unrecognized sect ion and content) No Status Records Found INFORMATION SOURCE (unrecogn ized section and content) DATE CREATED AUTHOR 12/13/2023 [facility] FOR RECORDS PERTAINING TO PATIENTS WHO ARE OR HAVE BEEN ENROLLED IN A CHEMICAL DEPENDENCY/SUBSTANCEABUSE PROGRAM, SOME INFORMATION MAY BE OMITTED. This clinical summary was aggregated from multiple sources. Caution should be exercised in using it in the provision of clinical care. This summary normalizes information from multiple sources, and as a consequence, information in this document may materially change the coding, format and clinical context of patient data. In addition, data may be omitted in some cases. CLINICAL DECISIONS SHOULD BE BASED ON THE PRIMARY CLINICAL RECORDS. [facility]. provides no warranty or guarantee of the accuracy or completeness of information in this document.
== END | disposition home or self-care (01) ==
PROVIDERS: PCP Family Medicine; Referring Provider Family Medicine; Visit Provider Family Medicine
DX: Z00.00 Encounter for general adult medical examination without abnormal findings (principal)